=== PATIENT | male | born 1950 | race Caucasian/White ===

== ENCOUNTER 2017-08-26 21:03 | Inpatient (IN) | payer MEDICARE ==
[2017-08-26 22:58] LABS: BASO % 0.6 % (0.0-2.0); EOS # 0.1 K/uL (0.0-0.7); EOS % 1.9 % (0.0-4.0); HEMOGLOBIN 14.3 g/dL (12.0-18.0); LYMPH # 0.7 K/uL (1.0-4.3); LYMPH % 12.5 % (20.0-40.0); MEAN CELL VOLUME 100.6 fL (80.0-94.0); MEAN CORPUSCULAR HEMOGLOBIN 35.3 pg (27.0-31.0); MEAN PLATELET VOLUME 7.4 fL (7.2-11.7); MONO # 0.2 K/uL (0.0-0.8); MONO % 4.2 % (0.0-10.0); NEUT # 4.3 K/uL (1.8-7.0); NEUT % 80.8 % (50.0-75.0); NRBC % 0.1 % (0.0-2.0); RBC 4.06 Mil/uL (4.40-5.90); RED CELL DISTRIBUTION WIDTH 13.7 % (11.5-14.5); WHITE BLOOD COUNT 5.3 K/uL (4.8-10.8)
[2017-08-26 23:08] LABS: ALB/GLOB RATIO 1.3 (1.0-2.1); ALT/SGPT 25 U/L (21-72); AST/SGOT 28 U/L (17-59); BLOOD UREA NITROGEN 10 mg/dL (9-20); CALCIUM 8.2 mg/dl (8.6-10.4); GFR AFRICAN-AMERICAN > 60; GFR NON-AFRICAN AMERICAN > 60
[2017-08-26 23:52] LABS: PROTHROMBIN TIME 11.1 SECONDS (9.7-12.2)
--- NOTE | 2017-08-27 00:07 | CT ---
EXAM: CT Head Without Intravenous Contrast EXAM DATE/TIME: 08/26/2017 10:41 PM CLINICAL HISTORY: 67 years old, male; Pain; Headache; Patient HX: 02-27-16 images sent; Additional info: Intoxicated, ? head injury TECHNIQUE: Axial computed tomography images of the head/brain without intravenous contrast. All CT scans at this facility use one or more dose reduction techniques, viz.: automated exposure control; ma/kV adjustment per patient size (including targeted exams where dose is matched to indication; i.e. head); or iterative reconstruction technique. COMPARISON: CT - HEAD W/O CONTRAST 2016-02-27 23:46 FINDINGS: There are old fractures of the anterior and lateral bassett of the maxillary sinuses. There are old fractures of the lateral orbital bassett. There is an old fracture of the left zygomatic arch. There is a nondisplaced fracture of the left parietal bone new since prior study with overlying soft tissue swelling (axial images 54 through 64). There is a biconvex extra-axial hyperdense collection underlying the left parietal fracture consistent with acute epidural hematoma measuring 17 mm in width. There is blood within numerous adjacent sulci of the left frontal, left parietal and left temporal lobe as well as in the sylvian fissure. There is a small amount of subdural blood along the anterior falx measuring 3 mm in width. There is a large hemorrhagic contusion in the left temporal lobe measuring approximately 4 x 1.7 cm in axial dimensions. A surrounding rim of low attenuation is present consistent with edema. There is nonvisualization of the temporal horn of the left lateral ventricle. The cisterns are patent. IMPRESSION: Acute nondisplaced left parietal bone fracture with underlying epidural hematoma. Subarachnoid hemorrhage within sulci of the left frontal, parietal, temporal lobes. Large left temporal hemorrhagic contusion with surrounding edema. Small left parafalcine hematoma. Multiple old facial fractures as described above.
--- NOTE | 2017-08-27 00:19 | C.PDOC ---
History Of Present Illness 67 year old male brought in by ambulance, after being found lying in the street intoxicated. Upon arrival, patient is walking around in the ER. States he fell and hit his head. There are no signs of injury. Patient offers no complaints at this time. PMD: none Time Seen by Provider: 08/26/17 22:25 Chief Complaint (Nursing): Substance Abuse History Per: Patient History/Exam Limitations: intoxication Onset/Duration Of Symptoms: Hrs Current Symptoms Are (Timing): Still Present Modifying Factor(s): Alcohol Additional History Per: EMS Past Medical History Reviewed: Historical Data, Nursing Documentation, Vital Signs Vital Signs: Last Vital Signs Temp 97.9 F 08/26/17 21:39 Pulse 80 08/26/17 23:45 Resp 16 08/26/17 23:45 BP 151/87 H 08/26/17 23:45 Pulse Ox 97 08/27/17 00:25 Family History: States: No Known Family Hx - Social History Hx Alcohol Use: Yes Hx Substance Use: No - Immunization History Hx Tetanus Toxoid Vaccination: No Hx Influenza Vaccination: No Hx Pneumococcal Vaccination: No Review Of Systems Constitutional: Negative for: Weakness Eyes: Negative for: Vision Change Cardiovascular: Negative for: Chest Pain, Light Headedness Respiratory: Negative for: Cough, Shortness of Breath Gastrointestinal: Negative for: Nausea, Vomiting, Abdominal Pain Skin: Negative for: Lesions, Bruising Neurological: Positive for: Other (head injury). Negative for: Weakness, Numbness, Seizures, Dizziness Physical Exam - Physical Exam Appears: Non-toxic, No Acute Distress Skin: Normal Color, Warm, Dry Head: Normacephalic, No Tenderness, No Swelling, No Abrasion, No Laceration, No Other (obvious signs of injury) Eye(s): bilateral: Normal Inspection, PERRL, EOMI Ear(s): Bilateral: Normal Oral Mucosa: Moist Neck: Normal ROM, Supple Chest: Symmetrical Cardiovascular: Rhythm Regular Respiratory: Normal Breath Sounds, No Accessory Muscle Use Gastrointestinal/Abdominal: Normal Exam, Soft, No Tenderness Extremity: Bilateral: Atraumatic, Normal Color And Temperature, Normal ROM Neurological/Psych: Other (speech is slurred) Gait: Unsteady ED Course And Treatment - Laboratory Results Result Diagrams: 08/26/17 22:53 08/26/17 22:53 Lab Interpretation: No Acute Changes (ETOH 237) ECG: Interpreted By Me ECG Rhythm: Sinus Rhythm ECG Interpretation: Normal O2 Sat by Pulse Oximetry: 97 (RA) Pulse Ox Interpretation: Normal - CT Scan/US CT Head Other Rad Studies (CT/US): Read By Radiologist, Radiology Report Reviewed CT/US Interpretation: FINDINGS: . There are old fractures of the anterior and lateral bassett of the maxillary. sinuses. . There are old fractures of the lateral orbital bassett. . There is an old fracture of the left zygomatic arch. . There is a nondisplaced fracture of the left parietal bone new since prior. study with overlying soft tissue swelling (axial images 54 through 64). . There is a biconvex extra-axial hyperdense collection underlying the left. parietal fracture consistent with acute epidural hematoma measuring 17 mm in. width. . There is blood within numerous adjacent sulci of the left frontal, left. parietal and left temporal lobe as well as in the sylvian fissure. . There is a small amount of subdural blood along the anterior falx measuring 3. mm in width. . There is a large hemorrhagic contusion in the left temporal lobe measuring. approximately 4 x 1.7 cm in axial dimensions. A surrounding rim of low. attenuation is present consistent with edema. There is nonvisualization of the. temporal horn of the left lateral ventricle. . The cisterns are patent. . . . IMPRESSION: . Acute nondisplaced left parietal bone fracture with underlying epidural. hematoma. . Subarachnoid hemorrhage within sulci of the left frontal, parietal, temporal. lobes. . Large left temporal hemorrhagic contusion with surrounding edema. . Small left parafalcine hematoma. . Multiple old facial fractures as described above. Reevaluation Time: 00:28 Reassessment Condition: Unchanged - Physician Consult Information Outcome Of Conversation: Case discussed with Dr Foster. Patient to be observed in ICU. Dr Barron notified, Dr Ceja accepting for ICU. Medical Decision Making Medical Decision Making: Impression: ETOH intoxication, possible head injury Time: 22:41 Initial Plan: * CMP * Alcohol serum * Blood type and screen * CBC * PTT * Prothrombin time * EKG * CT Head w/o contrast Disposition - Disposition Disposition: HOSPITALIZED Disposition Time: 00:29 Condition: CRITICAL - POA Present On Arrival: None - Clinical Impression Clinical Impression: Alcohol intoxication, Intracranial hemorrhage following injury - Scribe Statement The provider has reviewed the documentation as recorded by the Scribe (Vero Westbrook) Provider Attestation: All medical record entries made by the Scribe were at my direction and personally dictated by me. I have reviewed the chart and agree that the record accurately reflects my personal performance of the history, physical exam, medical decision making, and the department course for this patient. I have also personally directed, reviewed, and agree with the discharge instructions and disposition.
[2017-08-27] MEDS ORDERED: Folic Acid 1 MG, Thiamine 100 MG, Multivitamin (MVI) 10 ML in Dextrose 5% In Water 1,00... IV SCH (01:15)
[2017-08-27] MEDS ORDERED: Folic Acid 1 MG, Thiamine 100 MG, Multivitamin (MVI) 10 ML in Dextrose 5% In Water 1,00... IV ONE (01:30)
--- NOTE | 2017-08-27 02:16 | CP.PCM.CON ---
History of Present Illness - History of Present Illness History of Present Illness: 67 year old male brought in by ambulance, after being found lying in the street intoxicated. Upon arrival, patient is walking around in the ER. States he fell and hit his head. There are no signs of injury. Patient offers no complaints at this time. patient is following simple commands. He is moving all 4 extremities on commands. But he is not able to give much history. His speech is somewhat slurred. Vital signs otherwise stable. The family history, past medical history, surgical history in unobtainable. On examination: vital signs stable. Chest good air entry. Abdomen soft Nontender No pedal edema Neurologically patient awake and responding and following simple commands. Scalp injury noted. Patient had a CT scan of the head showing evidence ofleft parietal bone fracture ,underlying epidural hematoma, subarachnoid hemorrhage large left temporal hemorrhage and contusion and edema. PatientEtOH LEVEL is elevated Assessment/recommendation: 67-year-old male alcoholic abuse admitted with intox. Patient also has intracranial bleeding. Consulted with neurosurgeon, in the emergency room suggested no surgical interventio, ICU monitoring. Close watch. Fall precaution. delirium tremens,seizure precaution Past Patient History - Infectious Disease Hx of Infectious Diseases: None - Past Social History Smoking Status: Never Smoked - PSYCHIATRIC Hx Substance Use: No Meds Allergies/Adverse Reactions: Allergies Allergy/AdvReac Type Severity Reaction Status Date / Time Unobtainable Allergy Verified 08/26/17 21:46 - Medications Medications: Current Medications Potassium Chloride (Potassium Chloride 20 Meq/100 Ml) 20 meq in 100 mls @ 50 mls/hr IVPB ONCE ONE Stop: 08/27/17 03:08 Last Admin: 08/27/17 01:21 Dose: 50 mls/hr Potassium Chloride (Potassium Chloride 20 Meq/100 Ml) 20 meq in 100 mls @ 50 mls/hr IVPB ONCE ONE Stop: 08/27/17 03:12 Potassium Chloride (Potassium Chloride 20 Meq/100 Ml) 20 meq in 100 mls @ 50 mls/hr IVPB ONCE ONE Stop: 08/27/17 03:13 Folic Acid 1 mg/ Thiamine HCl 100 mg/ Multivitamins/Vitamin C 10 ml/ Dextrose 1 ,011.2 mls @ 75 mls/hr IV .[id number] ONE Stop: 08/27/17 14:58 Pantoprazole Sodium (Protonix Inj) 40 mg IVP DAILY CALE Results - Vital Signs Recent Vital Signs: Last Vital Signs Temp 98.2 F 08/27/17 01:29 Pulse 80 08/27/17 01:29 Resp 20 08/27/17 01:29 BP 164/91 H 08/27/17 01:29 Pulse Ox 100 08/27/17 01:29 - Labs Result Diagrams: 08/26/17 22:53 08/26/17 22:53 Labs: Laboratory Results - last 24 hr 08/26/17 08/26/17 08/26/17 22:53 22:53 22:53 WBC 5.3 RBC 4.06 L Hgb 14.3 Hct 40.8 MCV 100.6 H MCH 35.3 H MCHC 35.0 RDW 13.7 Plt Count 169 MPV 7.4 Neut % (Auto) 80.8 H Lymph % (Auto) 12.5 L [place] % (Auto) 4.2 Eos % (Auto) 1.9 Baso % (Auto) 0.6 Neut # (Auto) 4.3 Lymph # (Auto) 0.7 L [place] # (Auto) 0.2 Eos # (Auto) 0.1 Baso # (Auto) 0.0 PT INR APTT Sodium 135 Potassium 3.0 L Chloride 95 L Carbon Dioxide 28 Anion Gap 15 BUN 10 Creatinine 0.8 Est GFR ( Amer) > 60 Est GFR (Non-Af Amer) > 60 Random Glucose 119 H Calcium 8.2 L Magnesium Total Bilirubin 0.9 AST 28 ALT 25 Alkaline Phosphatase 32 L Total Protein 7.1 Albumin 4.0 Globulin 3.1 Albumin/Globulin Ratio 1.3 Alcohol, Quantitative 237 H Blood Type Antibody Screen 08/26/17 08/27/17 08/27/17 23:41 00:09 01:23 WBC RBC Hgb Hct MCV MCH MCHC RDW Plt Count MPV Neut % (Auto) Lymph % (Auto) [place] % (Auto) Eos % (Auto) Baso % (Auto) Neut # (Auto) Lymph # (Auto) [place] # (Auto) Eos # (Auto) Baso # (Auto) PT 11.1 INR 1.0 APTT 28 Sodium Potassium Chloride Carbon Dioxide Anion Gap BUN Creatinine Est GFR ( Amer) Est GFR (Non-Af Amer) Random Glucose Calcium Magnesium 2.0 Total Bilirubin AST ALT Alkaline Phosphatase Total Protein Albumin Globulin Albumin/Globulin Ratio Alcohol, Quantitative Blood Type A POSITIVE Antibody Screen Negative
[2017-08-27 07:04] LABS: BASO % 0.3 % (0.0-2.0); EOS % 0.2 % (0.0-4.0); HEMOGLOBIN 13.8 g/dL (12.0-18.0); LYMPH # 0.7 K/uL (1.0-4.3); MEAN CELL VOLUME 99.5 fL (80.0-94.0); MEAN CORPUSCULAR HEMOGLOBIN 35.7 pg (27.0-31.0); MEAN CORPUSCULAR HGB CONC 35.8 g/dL (33.0-37.0); MONO # 0.4 K/uL (0.0-0.8); MONO % 4.3 % (0.0-10.0); NEUT # 9.1 K/uL (1.8-7.0); NEUT % 88.2 % (50.0-75.0); PLATELET COUNT 201 K/uL (130-400); RBC 3.86 Mil/uL (4.40-5.90); RED CELL DISTRIBUTION WIDTH 13.5 % (11.5-14.5); WHITE BLOOD COUNT 10.3 K/uL (4.8-10.8)
[2017-08-27] MEDS ORDERED: Phytonadione 10 mg/ml Inj (Adult) IV STA (07:19)
[2017-08-27] MEDS: levETIRAcetam 1,000 MG in Sodium Chloride 0.9% 100 ML IVPB SCH ×2 (07:30→18:42)
[2017-08-27 07:34] LABS: ALB/GLOB RATIO 1.3 (1.0-2.1); ALBUMIN 3.9 g/dL (3.5-5.0); ALT/SGPT 22 U/L (21-72); AST/SGOT 27 U/L (17-59); BLOOD UREA NITROGEN 9 mg/dL (9-20); CALCIUM 8.1 mg/dl (8.6-10.4); GFR AFRICAN-AMERICAN > 60; GFR NON-AFRICAN AMERICAN > 60; MAGNESIUM 1.7 mg/dL (1.6-2.3)
[2017-08-27 09:01] LABS: TOTAL CELLS COUNTED 100
[2017-08-27 09:02] LABS: LYMPHOCYTE 7 % (20-40); MONOCYTE 4 % (0-10); NEUTROPHIL 89 % (50-75); PLATELET ESTIMATE NORMAL (NORMAL)
--- NOTE | 2017-08-27 09:25 | RAD ---
Chest x-ray single frontal view History: Intracranial bleed. Comparison: None available. Findings: No focal infiltrate or effusion. Small nodular density at the right lung base may represent confluence of shadows with ribs and vessels. Tortuous aorta. Heart size within normal limits. Degenerative changes in the spine. Impression: No focal infiltrate or effusion. Small nodular density at the right lung base may represent confluence of shadows with ribs and vessels.
--- NOTE | 2017-08-27 10:08 | CP.PCM.CON ---
History of Present Illness - History of Present Illness History of Present Illness: Dictated moderate L temp ICH Pt is arousable even posttictal botello well will definitely have speech and language dysfunction CT this am unchanged No NRS intervention indicated at this time rec HOB elevation dehydration f/ CT am Past Patient History - Infectious Disease Hx of Infectious Diseases: None - Past Medical History & Family History Past Medical History?: No - Past Social History Smoking Status: Never Smoked - CARDIAC Hx Cardiac Disorders: No - PULMONARY Hx Respiratory Disorders: No - NEUROLOGICAL Hx Neurological Disorder: No - HEENT Hx HEENT Problems: No - RENAL Hx Chronic Kidney Disease: No - ENDOCRINE/METABOLIC Hx Endocrine Disorders: No - HEMATOLOGICAL/ONCOLOGICAL Hx Blood Disorders: No - INTEGUMENTARY Hx Dermatological Problems: No - MUSCULOSKELETAL/RHEUMATOLOGICAL Hx Falls: Yes - GASTROINTESTINAL Hx Gastrointestinal Disorders: No - GENITOURINARY/GYNECOLOGICAL Hx Genitourinary Disorders: No - PSYCHIATRIC Hx Substance Use: No - SURGICAL HISTORY Hx Surgeries: Yes Other/Comment: stitches to eyebrow due to fall from intoxication - ANESTHESIA Hx Anesthesia: No Hx Anesthesia Reactions: No Hx Malignant Hyperthermia: No Meds Allergies/Adverse Reactions: Allergies Allergy/AdvReac Type Severity Reaction Status Date / Time Unobtainable Allergy Verified 08/26/17 21:46 - Medications Medications: Current Medications Folic Acid 1 mg/ Thiamine HCl 100 mg/ Multivitamins/Vitamin C 10 ml/ Dextrose 1 ,011.2 mls @ 75 mls/hr IV .[id number] ONE Stop: 08/27/17 14:58 Last Admin: 08/27/17 02:32 Dose: 75 mls/hr Levetiracetam 1,000 mg/ Sodium (Chloride) 110 mls @ 420 mls/hr IVPB Q12H CALE Mannitol (Mannitol) 500 mls @ 100 mls/hr IV .Q5H CALE Stop: 08/27/17 11:29 Lorazepam (Ativan) 1 mg IVP Q6H PRN PRN Reason: Anxiety Last Admin: 08/27/17 07:23 Dose: 1 mg Pantoprazole Sodium (Protonix Inj) 40 mg IVP DAILY CALE Thiamine HCl (Vitamin B1 Tab) 100 mg PO DAILY CALE Results - Vital Signs Recent Vital Signs: Last Vital Signs Temp 98.4 F 08/27/17 04:00 Pulse 106 H 08/27/17 07:00 Resp 26 H 08/27/17 07:00 BP 143/77 08/27/17 06:59 Pulse Ox 96 08/27/17 07:00 - Labs Result Diagrams: 08/27/17 07:01 08/27/17 07:01 Labs: Laboratory Results - last 24 hr 08/26/17 08/26/17 08/26/17 22:53 22:53 22:53 WBC 5.3 RBC 4.06 L Hgb 14.3 Hct 40.8 MCV 100.6 H MCH 35.3 H MCHC 35.0 RDW 13.7 Plt Count 169 MPV 7.4 Neut % (Auto) 80.8 H Lymph % (Auto) 12.5 L [place] % (Auto) 4.2 Eos % (Auto) 1.9 Baso % (Auto) 0.6 Neut # (Auto) 4.3 Lymph # (Auto) 0.7 L [place] # (Auto) 0.2 Eos # (Auto) 0.1 Baso # (Auto) 0.0 Neutrophils % (Manual) Lymphocytes % (Manual) Monocytes % (Manual) Platelet Estimate PT INR APTT Sodium 135 Potassium 3.0 L Chloride 95 L Carbon Dioxide 28 Anion Gap 15 BUN 10 Creatinine 0.8 Est GFR ( Amer) > 60 Est GFR (Non-Af Amer) > 60 Random Glucose 119 H Calcium 8.2 L Phosphorus Magnesium Total Bilirubin 0.9 AST 28 ALT 25 Alkaline Phosphatase 32 L Total Protein 7.1 Albumin 4.0 Globulin 3.1 Albumin/Globulin Ratio 1.3 Alcohol, Quantitative 237 H Blood Type Antibody Screen 08/26/17 08/27/17 08/27/17 23:41 00:09 01:23 WBC RBC Hgb Hct MCV MCH MCHC RDW Plt Count MPV Neut % (Auto) Lymph % (Auto) [place] % (Auto) Eos % (Auto) Baso % (Auto) Neut # (Auto) Lymph # (Auto) [place] # (Auto) Eos # (Auto) Baso # (Auto) Neutrophils % (Manual) Lymphocytes % (Manual) Monocytes % (Manual) Platelet Estimate PT 11.1 INR 1.0 APTT 28 Sodium Potassium Chloride Carbon Dioxide Anion Gap BUN Creatinine Est GFR ( Amer) Est GFR (Non-Af Amer) Random Glucose Calcium Phosphorus Magnesium 2.0 Total Bilirubin AST ALT Alkaline Phosphatase Total Protein Albumin Globulin Albumin/Globulin Ratio Alcohol, Quantitative Blood Type A POSITIVE Antibody Screen Negative 08/27/17 08/27/17 07:01 07:01 WBC 10.3 D RBC 3.86 L Hgb 13.8 Hct 38.4 MCV 99.5 H MCH 35.7 H MCHC 35.8 RDW 13.5 Plt Count 201 MPV 8.0 Neut % (Auto) 88.2 H Lymph % (Auto) 7.0 L [place] % (Auto) 4.3 Eos % (Auto) 0.2 Baso % (Auto) 0.3 Neut # (Auto) 9.1 H Lymph # (Auto) 0.7 L [place] # (Auto) 0.4 Eos # (Auto) 0.0 Baso # (Auto) 0.0 Neutrophils % (Manual) 89 H Lymphocytes % (Manual) 7 L Monocytes % (Manual) 4 Platelet Estimate Normal PT INR APTT Sodium 130 L Potassium 3.8 Chloride 96 L Carbon Dioxide 18 L Anion Gap 20 BUN 9 Creatinine 0.7 L Est GFR ( Amer) > 60 Est GFR (Non-Af Amer) > 60 Random Glucose 127 H Calcium 8.1 L Phosphorus 2.1 L Magnesium 1.7 Total Bilirubin 1.0 AST 27 ALT 22 Alkaline Phosphatase 36 L Total Protein 6.9 Albumin 3.9 Globulin 3.0 Albumin/Globulin Ratio 1.3 Alcohol, Quantitative Blood Type Antibody Screen
--- NOTE | 2017-08-27 10:28 | CT ---
PROCEDURE: CT HEAD WITHOUT CONTRAST. HISTORY: worsening neuro status COMPARISON: CT 08/26/2017 TECHNIQUE: Axial computed tomography images were obtained through the head/brain without intravenous contrast. Radiation dose: Total exam DLP = 1068 mGy-cm. This CT exam was performed using one or more of the following dose reduction techniques: Automated exposure control, adjustment of the mA and/or kV according to patient size, and/or use of iterative reconstruction technique. FINDINGS: HEMORRHAGE: There is an extra-axial hemorrhage adjacent to the skull fracture which has a biconvex appearance suspicious for an epidural hematoma. This has not changed in size. This measures 10 mm thick by 48 mm with as seen on coronal image 54. There is also a small component of subdural blood and subarachnoid blood. A minimal subdural hemorrhage is seen along the anterior falx. There is a large intraparenchymal hemorrhage in the left temporal lobe with a moderate amount of surrounding edema. There is also a small focal hemorrhage along the inferior surface of the anterior right frontal lobe. All of these findings are stable and unchanged. BRAIN: As above VENTRICLES: Unremarkable. No hydrocephalus. CALVARIUM: Nondisplaced fracture of the skull in the left frontal region PARANASAL SINUSES: Unremarkable as visualized. No significant inflammatory changes. MASTOID AIR CELLS: Unremarkable as visualized. No inflammatory changes. OTHER FINDINGS: None. IMPRESSION: Multi compartment hemorrhage as described above. Findings are stable and unchanged
[2017-08-27] MEDS ORDERED: Phytonadione 10 mg/ml Inj (Adult) IV ONE (10:45)
--- NOTE | 2017-08-27 17:36 | CP.CCUPN ---
<Corbin Linder - Last Filed: 08/27/17 17:35> CCU Subjective - Physician Review Subjective (Free Text): 08/27/17 17:35 Patient seen and examined at bedside Course thus far is as follows: Patient is a 67 year-old [place] male brought in 08/26 at 2200 by ambulance after being found in the street intoxicated. He claimed to have fallen and hit his head after having drank "two beers", and has difficulty speaking and understanding [place] (soboba [place]), but able to use an interpreter and translator. He suffered a generalized tonic-clonic new onset seizure this AM at ~600, and was unarousable immediately after. Neurosurgery (Kristin) evaluated him shortly thereafter and did not recommend neurosurgical intervention at that time, but will re-evaluate in the coming days. He had a head CT performed in the ED on 08/26, which found old fractures of anterior/lateral wall, maxillary sinuses, lateral orbital,and left zygomatic arch. New, acute findings from the CT revealed a non-displaced left parietal bone fracture with epidural hematoma, subarachnoid hemorrhage within sulci of left frontal, parietal, and temporal bones, and left temporal hemorrhagic contusion with edema. No focal neurologic deficits were noted, although speech areas may be affected as the course progresses. Denies any medical or surgical history. Denies any known family medical history. Next of kin: none Code Status: n/a (presumed full) CCU Objective - Vital Signs / Intake & Output Vital Signs (Last 4 hours): Vital Signs Pulse Resp BP Pulse Ox 08/27/17 15:23 86 08/27/17 15:02 112/94 H 08/27/17 14:44 136 H 90 L 08/27/17 14:00 83 19 98 08/27/17 13:59 82 17 158/88 H 98 Intake and Output (Last 8hrs): Intake & Output 08/27/17 08/27/17 08/27/17 06:59 14:59 22:59 Intake Total 550 1250 175 Balance 550 1250 175 Weight 132 lb 15.02 oz Intake: Intake, IV Amount 550 1250 175 right antecubital 250 650 100 right forearm 300 600 75 Oral 0 0 Other: # Voids Urine, Voided 0 0 # Bowel Movements 0 0 - Medications Active Medications: Active Medications Generic Name Dose Route Start Last Admin Trade Name Freq PRN Reason Stop Dose Admin Chlordiazepoxide 10 mg 08/27/17 11:00 Librium PO Q8 PRN Sedation Levetiracetam 1,000 mg/ Sodium 110 mls @ 420 mls/hr 08/27/17 06:45 08/27/17 07:30 Chloride IVPB 420 mls/hr Q12H CALE Administration Lorazepam 1 mg 08/27/17 10:39 Ativan IVP Q4H PRN Anxiety Pantoprazole Sodium 40 mg 08/27/17 10:00 08/27/17 10:52 Protonix Inj IVP 40 mg DAILY CALE Administration Thiamine HCl 100 mg 08/27/17 10:00 08/27/17 10:52 Vitamin B1 Tab PO 100 mg DAILY CALE Administration - Patient Studies Lab Studies: Lab Studies 08/27/17 08/27/17 08/27/17 Range/Units 07:01 07:01 01:23 WBC 10.3 D (4.8-10.8) K/uL RBC 3.86 L (4.40-5.90) Mil/uL Hgb 13.8 (12.0-18.0) g/dL Hct 38.4 (35.0-51.0) % MCV 99.5 H (80.0-94.0) fL MCH 35.7 H (27.0-31.0) pg MCHC 35.8 (33.0-37.0) g/dL RDW 13.5 (11.5-14.5) % Plt Count 201 (130-400) K/uL MPV 8.0 (7.2-11.7) fL Neut % (Auto) 88.2 H (50.0-75.0) % Lymph % (Auto) 7.0 L (20.0-40.0) % [place] % (Auto) 4.3 (0.0-10.0) % Eos % (Auto) 0.2 (0.0-4.0) % Baso % (Auto) 0.3 (0.0-2.0) % Neut # (Auto) 9.1 H (1.8-7.0) K/uL Lymph # (Auto) 0.7 L (1.0-4.3) K/uL [place] # (Auto) 0.4 (0.0-0.8) K/uL Eos # (Auto) 0.0 (0.0-0.7) K/uL Baso # (Auto) 0.0 (0.0-0.2) K/uL Neutrophils % (Manual) 89 H (50-75) % Lymphocytes % (Manual) 7 L (20-40) % Monocytes % (Manual) 4 (0-10) % Platelet Estimate Normal (NORMAL) PT (9.7-12.2) SECONDS INR APTT (21-34) SECONDS Sodium 130 L (132-148) mmol/L Potassium 3.8 (3.6-5.2) mmol/L Chloride 96 L (98-107) mmol/L Carbon Dioxide 18 L (22-30) mmol/L Anion Gap 20 (10-20) BUN 9 (9-20) mg/dL Creatinine 0.7 L (0.8-1.5) mg/dL Est GFR ( Amer) > 60 Est GFR (Non-Af Amer) > 60 Random Glucose 127 H (75-110) mg/dL Calcium 8.1 L (8.6-10.4) mg/dl Phosphorus 2.1 L (2.5-4.5) mg/dL Magnesium 1.7 2.0 (1.6-2.3) mg/dL Total Bilirubin 1.0 (0.2-1.3) mg/dL AST 27 (17-59) U/L ALT 22 (21-72) U/L Alkaline Phosphatase 36 L (38-126) U/L Total Protein 6.9 (6.3-8.3) g/dL Albumin 3.9 (3.5-5.0) g/dL Globulin 3.0 (2.2-3.9) gm/dL Albumin/Globulin Ratio 1.3 (1.0-2.1) Alcohol, Quantitative (0-10) mg/dl Blood Type Antibody Screen 08/27/17 08/26/17 08/26/17 Range/Units 00:09 23:41 22:53 WBC 5.3 (4.8-10.8) K/uL RBC 4.06 L (4.40-5.90) Mil/uL Hgb 14.3 (12.0-18.0) g/dL Hct 40.8 (35.0-51.0) % MCV 100.6 H (80.0-94.0) fL MCH 35.3 H (27.0-31.0) pg MCHC 35.0 (33.0-37.0) g/dL RDW 13.7 (11.5-14.5) % Plt Count 169 (130-400) K/uL MPV 7.4 (7.2-11.7) fL Neut % (Auto) 80.8 H (50.0-75.0) % Lymph % (Auto) 12.5 L (20.0-40.0) % [place] % (Auto) 4.2 (0.0-10.0) % Eos % (Auto) 1.9 (0.0-4.0) % Baso % (Auto) 0.6 (0.0-2.0) % Neut # (Auto) 4.3 (1.8-7.0) K/uL Lymph # (Auto) 0.7 L (1.0-4.3) K/uL [place] # (Auto) 0.2 (0.0-0.8) K/uL Eos # (Auto) 0.1 (0.0-0.7) K/uL Baso # (Auto) 0.0 (0.0-0.2) K/uL Neutrophils % (Manual) (50-75) % Lymphocytes % (Manual) (20-40) % Monocytes % (Manual) (0-10) % Platelet Estimate (NORMAL) PT 11.1 (9.7-12.2) SECONDS INR 1.0 APTT 28 (21-34) SECONDS Sodium (132-148) mmol/L Potassium (3.6-5.2) mmol/L Chloride (98-107) mmol/L Carbon Dioxide (22-30) mmol/L Anion Gap (10-20) BUN (9-20) mg/dL Creatinine (0.8-1.5) mg/dL Est GFR ( Amer) Est GFR (Non-Af Amer) Random Glucose (75-110) mg/dL Calcium (8.6-10.4) mg/dl Phosphorus (2.5-4.5) mg/dL Magnesium (1.6-2.3) mg/dL Total Bilirubin (0.2-1.3) mg/dL AST (17-59) U/L ALT (21-72) U/L Alkaline Phosphatase (38-126) U/L Total Protein (6.3-8.3) g/dL Albumin (3.5-5.0) g/dL Globulin (2.2-3.9) gm/dL Albumin/Globulin Ratio (1.0-2.1) Alcohol, Quantitative (0-10) mg/dl Blood Type A POSITIVE Antibody Screen Negative 08/26/17 08/26/17 Range/Units 22:53 22:53 WBC (4.8-10.8) K/uL RBC (4.40-5.90) Mil/uL Hgb (12.0-18.0) g/dL Hct (35.0-51.0) % MCV (80.0-94.0) fL MCH (27.0-31.0) pg MCHC (33.0-37.0) g/dL RDW (11.5-14.5) % Plt Count (130-400) K/uL MPV (7.2-11.7) fL Neut % (Auto) (50.0-75.0) % Lymph % (Auto) (20.0-40.0) % [place] % (Auto) (0.0-10.0) % Eos % (Auto) (0.0-4.0) % Baso % (Auto) (0.0-2.0) % Neut # (Auto) (1.8-7.0) K/uL Lymph # (Auto) (1.0-4.3) K/uL [place] # (Auto) (0.0-0.8) K/uL Eos # (Auto) (0.0-0.7) K/uL Baso # (Auto) (0.0-0.2) K/uL Neutrophils % (Manual) (50-75) % Lymphocytes % (Manual) (20-40) % Monocytes % (Manual) (0-10) % Platelet Estimate (NORMAL) PT (9.7-12.2) SECONDS INR APTT (21-34) SECONDS Sodium 135 (132-148) mmol/L Potassium 3.0 L (3.6-5.2) mmol/L Chloride 95 L (98-107) mmol/L Carbon Dioxide 28 (22-30) mmol/L Anion Gap 15 (10-20) BUN 10 (9-20) mg/dL Creatinine 0.8 (0.8-1.5) mg/dL Est GFR ( Amer) > 60 Est GFR (Non-Af Amer) > 60 Random Glucose 119 H (75-110) mg/dL Calcium 8.2 L (8.6-10.4) mg/dl Phosphorus (2.5-4.5) mg/dL Magnesium (1.6-2.3) mg/dL Total Bilirubin 0.9 (0.2-1.3) mg/dL AST 28 (17-59) U/L ALT 25 (21-72) U/L Alkaline Phosphatase 32 L (38-126) U/L Total Protein 7.1 (6.3-8.3) g/dL Albumin 4.0 (3.5-5.0) g/dL Globulin 3.1 (2.2-3.9) gm/dL Albumin/Globulin Ratio 1.3 (1.0-2.1) Alcohol, Quantitative 237 H (0-10) mg/dl Blood Type Antibody Screen Laboratory Results - last 24 hr 08/26/17 08/26/17 08/26/17 22:53 22:53 22:53 WBC 5.3 RBC 4.06 L Hgb 14.3 Hct 40.8 MCV 100.6 H MCH 35.3 H MCHC 35.0 RDW 13.7 Plt Count 169 MPV 7.4 Neut % (Auto) 80.8 H Lymph % (Auto) 12.5 L [place] % (Auto) 4.2 Eos % (Auto) 1.9 Baso % (Auto) 0.6 Neut # (Auto) 4.3 Lymph # (Auto) 0.7 L [place] # (Auto) 0.2 Eos # (Auto) 0.1 Baso # (Auto) 0.0 Neutrophils % (Manual) Lymphocytes % (Manual) Monocytes % (Manual) Platelet Estimate PT INR APTT Sodium 135 Potassium 3.0 L Chloride 95 L Carbon Dioxide 28 Anion Gap 15 BUN 10 Creatinine 0.8 Est GFR ( Amer) > 60 Est GFR (Non-Af Amer) > 60 Random Glucose 119 H Calcium 8.2 L Phosphorus Magnesium Total Bilirubin 0.9 AST 28 ALT 25 Alkaline Phosphatase 32 L Total Protein 7.1 Albumin 4.0 Globulin 3.1 Albumin/Globulin Ratio 1.3 Alcohol, Quantitative 237 H Blood Type Antibody Screen 08/26/17 08/27/17 08/27/17 23:41 00:09 01:23 WBC RBC Hgb Hct MCV MCH MCHC RDW Plt Count MPV Neut % (Auto) Lymph % (Auto) [place] % (Auto) Eos % (Auto) Baso % (Auto) Neut # (Auto) Lymph # (Auto) [place] # (Auto) Eos # (Auto) Baso # (Auto) Neutrophils % (Manual) Lymphocytes % (Manual) Monocytes % (Manual) Platelet Estimate PT 11.1 INR 1.0 APTT 28 Sodium Potassium Chloride Carbon Dioxide Anion Gap BUN Creatinine Est GFR ( Amer) Est GFR (Non-Af Amer) Random Glucose Calcium Phosphorus Magnesium 2.0 Total Bilirubin AST ALT Alkaline Phosphatase Total Protein Albumin Globulin Albumin/Globulin Ratio Alcohol, Quantitative Blood Type A POSITIVE Antibody Screen Negative 08/27/17 08/27/17 07:01 07:01 WBC 10.3 D RBC 3.86 L Hgb 13.8 Hct 38.4 MCV 99.5 H MCH 35.7 H MCHC 35.8 RDW 13.5 Plt Count 201 MPV 8.0 Neut % (Auto) 88.2 H Lymph % (Auto) 7.0 L [place] % (Auto) 4.3 Eos % (Auto) 0.2 Baso % (Auto) 0.3 Neut # (Auto) 9.1 H Lymph # (Auto) 0.7 L [place] # (Auto) 0.4 Eos # (Auto) 0.0 Baso # (Auto) 0.0 Neutrophils % (Manual) 89 H Lymphocytes % (Manual) 7 L Monocytes % (Manual) 4 Platelet Estimate Normal PT INR APTT Sodium 130 L Potassium 3.8 Chloride 96 L Carbon Dioxide 18 L Anion Gap 20 BUN 9 Creatinine 0.7 L Est GFR ( Amer) > 60 Est GFR (Non-Af Amer) > 60 Random Glucose 127 H Calcium 8.1 L Phosphorus 2.1 L Magnesium 1.7 Total Bilirubin 1.0 AST 27 ALT 22 Alkaline Phosphatase 36 L Total Protein 6.9 Albumin 3.9 Globulin 3.0 Albumin/Globulin Ratio 1.3 Alcohol, Quantitative Blood Type Antibody Screen EKG/Cardiology Studies: Cardiology / EKG Studies 08/26/17 23:29 EKG [ELECTROCARDIOGRAM] Stat Comment: Mode Of Transportation: Reason For Exam: CT scan + bleed Critical Care Progress Note - Nutrition Nutrition: Nutrition Category Date Time Status NPO Diet [DIET] Diets 08/27/17 Breakfast Active Assessment/Plan - Assessment and Plan (Free Text) Assessment: 67M w/ intracranial hem Neuro: intracranial hemorrhage, acute; new onset seizure; etOH toxicity (level 2 /8, AM = 237); delirium tremens - d/c Keppra 1000mg @ 420ml/hr IVPB q12 - Librium 25mg q6 hold to sedation - Ativan 1mg IVP q4 standing (on top of PRN) - Mannitol 500ml @ 100ml/hr IV q5 - Vitamin B1 tab 100mg PO qd - f/u with neuro (Aj) with EEG results PPx: - Protonix inj 40mg IVP qd - Fall precautions - HOB elevated <Latef,Javier M - Last Filed: 08/27/17 20:47> CCU Objective - Vital Signs / Intake & Output Vital Signs (Last 4 hours): Vital Signs Pulse Resp Pulse Ox 08/27/17 20:00 85 19 100 08/27/17 19:00 86 17 98 08/27/17 18:00 86 19 98 08/27/17 17:00 83 18 100 Intake and Output (Last 8hrs): Intake & Output 08/27/17 08/27/17 08/27/17 06:59 14:59 22:59 Intake Total 550 1250 950 Output Total 800 Balance 550 1250 150 Weight 132 lb 15.02 oz Intake: Intake, IV Amount 550 1250 950 right antecubital 250 650 500 right forearm 300 600 450 Oral 0 0 Output: Urine 800 Urine, Voided 800 Other: # Voids Urine, Voided 0 0 # Bowel Movements 0 0 - Medications Active Medications: Active Medications Generic Name Dose Route Start Last Admin Trade Name Freq PRN Reason Stop Dose Admin Chlordiazepoxide 10 mg 08/27/17 11:00 Librium PO Q8 PRN Sedation Levetiracetam 1,000 mg/ Sodium 110 mls @ 420 mls/hr 08/27/17 06:45 08/27/17 18:42 Chloride IVPB 420 mls/hr Q12H CALE Administration Sodium Chloride 1,000 mls @ 80 mls/hr 08/27/17 19:15 Sodium Chloride 0.9% IV .[id number] CALE Lorazepam 1 mg 08/27/17 10:39 Ativan IVP Q4H PRN Anxiety Pantoprazole Sodium 40 mg 08/27/17 10:00 08/27/17 10:52 Protonix Inj IVP 40 mg DAILY CALE Administration Thiamine HCl 100 mg 08/27/17 10:00 08/27/17 10:52 Vitamin B1 Tab PO 100 mg DAILY CALE Administration - Patient Studies Lab Studies: Lab Studies 08/27/17 08/27/17 08/27/17 Range/Units 07:01 07:01 01:23 WBC 10.3 D (4.8-10.8) K/uL RBC 3.86 L (4.40-5.90) Mil/uL Hgb 13.8 (12.0-18.0) g/dL Hct 38.4 (35.0-51.0) % MCV 99.5 H (80.0-94.0) fL MCH 35.7 H (27.0-31.0) pg MCHC 35.8 (33.0-37.0) g/dL RDW 13.5 (11.5-14.5) % Plt Count 201 (130-400) K/uL MPV 8.0 (7.2-11.7) fL Neut % (Auto) 88.2 H (50.0-75.0) % Lymph % (Auto) 7.0 L (20.0-40.0) % [place] % (Auto) 4.3 (0.0-10.0) % Eos % (Auto) 0.2 (0.0-4.0) % Baso % (Auto) 0.3 (0.0-2.0) % Neut # (Auto) 9.1 H (1.8-7.0) K/uL Lymph # (Auto) 0.7 L (1.0-4.3) K/uL [place] # (Auto) 0.4 (0.0-0.8) K/uL Eos # (Auto) 0.0 (0.0-0.7) K/uL Baso # (Auto) 0.0 (0.0-0.2) K/uL Neutrophils % (Manual) 89 H (50-75) % Lymphocytes % (Manual) 7 L (20-40) % Monocytes % (Manual) 4 (0-10) % Platelet Estimate Normal (NORMAL) PT (9.7-12.2) SECONDS INR APTT (21-34) SECONDS Sodium 130 L (132-148) mmol/L Potassium 3.8 (3.6-5.2) mmol/L Chloride 96 L (98-107) mmol/L Carbon Dioxide 18 L (22-30) mmol/L Anion Gap 20 (10-20) BUN 9 (9-20) mg/dL Creatinine 0.7 L (0.8-1.5) mg/dL Est GFR ( Amer) > 60 Est GFR (Non-Af Amer) > 60 Random Glucose 127 H (75-110) mg/dL Calcium 8.1 L (8.6-10.4) mg/dl Phosphorus 2.1 L (2.5-4.5) mg/dL Magnesium 1.7 2.0 (1.6-2.3) mg/dL Total Bilirubin 1.0 (0.2-1.3) mg/dL AST 27 (17-59) U/L ALT 22 (21-72) U/L Alkaline Phosphatase 36 L (38-126) U/L Total Protein 6.9 (6.3-8.3) g/dL Albumin 3.9 (3.5-5.0) g/dL Globulin 3.0 (2.2-3.9) gm/dL Albumin/Globulin Ratio 1.3 (1.0-2.1) Alcohol, Quantitative (0-10) mg/dl Blood Type Antibody Screen 08/27/17 08/26/17 08/26/17 Range/Units 00:09 23:41 22:53 WBC 5.3 (4.8-10.8) K/uL RBC 4.06 L (4.40-5.90) Mil/uL Hgb 14.3 (12.0-18.0) g/dL Hct 40.8 (35.0-51.0) % MCV 100.6 H (80.0-94.0) fL MCH 35.3 H (27.0-31.0) pg MCHC 35.0 (33.0-37.0) g/dL RDW 13.7 (11.5-14.5) % Plt Count 169 (130-400) K/uL MPV 7.4 (7.2-11.7) fL Neut % (Auto) 80.8 H (50.0-75.0) % Lymph % (Auto) 12.5 L (20.0-40.0) % [place] % (Auto) 4.2 (0.0-10.0) % Eos % (Auto) 1.9 (0.0-4.0) % Baso % (Auto) 0.6 (0.0-2.0) % Neut # (Auto) 4.3 (1.8-7.0) K/uL Lymph # (Auto) 0.7 L (1.0-4.3) K/uL [place] # (Auto) 0.2 (0.0-0.8) K/uL Eos # (Auto) 0.1 (0.0-0.7) K/uL Baso # (Auto) 0.0 (0.0-0.2) K/uL Neutrophils % (Manual) (50-75) % Lymphocytes % (Manual) (20-40) % Monocytes % (Manual) (0-10) % Platelet Estimate (NORMAL) PT 11.1 (9.7-12.2) SECONDS INR 1.0 APTT 28 (21-34) SECONDS Sodium (132-148) mmol/L Potassium (3.6-5.2) mmol/L Chloride (98-107) mmol/L Carbon Dioxide (22-30) mmol/L Anion Gap (10-20) BUN (9-20) mg/dL Creatinine (0.8-1.5) mg/dL Est GFR ( Amer) Est GFR (Non-Af Amer) Random Glucose (75-110) mg/dL Calcium (8.6-10.4) mg/dl Phosphorus (2.5-4.5) mg/dL Magnesium (1.6-2.3) mg/dL Total Bilirubin (0.2-1.3) mg/dL AST (17-59) U/L ALT (21-72) U/L Alkaline Phosphatase (38-126) U/L Total Protein (6.3-8.3) g/dL Albumin (3.5-5.0) g/dL Globulin (2.2-3.9) gm/dL Albumin/Globulin Ratio (1.0-2.1) Alcohol, Quantitative (0-10) mg/dl Blood Type A POSITIVE Antibody Screen Negative 08/26/17 08/26/17 Range/Units 22:53 22:53 WBC (4.8-10.8) K/uL RBC (4.40-5.90) Mil/uL Hgb (12.0-18.0) g/dL Hct (35.0-51.0) % MCV (80.0-94.0) fL MCH (27.0-31.0) pg MCHC (33.0-37.0) g/dL RDW (11.5-14.5) % Plt Count (130-400) K/uL MPV (7.2-11.7) fL Neut % (Auto) (50.0-75.0) % Lymph % (Auto) (20.0-40.0) % [place] % (Auto) (0.0-10.0) % Eos % (Auto) (0.0-4.0) % Baso % (Auto) (0.0-2.0) % Neut # (Auto) (1.8-7.0) K/uL Lymph # (Auto) (1.0-4.3) K/uL [place] # (Auto) (0.0-0.8) K/uL Eos # (Auto) (0.0-0.7) K/uL Baso # (Auto) (0.0-0.2) K/uL Neutrophils % (Manual) (50-75) % Lymphocytes % (Manual) (20-40) % Monocytes % (Manual) (0-10) % Platelet Estimate (NORMAL) PT (9.7-12.2) SECONDS INR APTT (21-34) SECONDS Sodium 135 (132-148) mmol/L Potassium 3.0 L (3.6-5.2) mmol/L Chloride 95 L (98-107) mmol/L Carbon Dioxide 28 (22-30) mmol/L Anion Gap 15 (10-20) BUN 10 (9-20) mg/dL Creatinine 0.8 (0.8-1.5) mg/dL Est GFR ( Amer) > 60 Est GFR (Non-Af Amer) > 60 Random Glucose 119 H (75-110) mg/dL Calcium 8.2 L (8.6-10.4) mg/dl Phosphorus (2.5-4.5) mg/dL Magnesium (1.6-2.3) mg/dL Total Bilirubin 0.9 (0.2-1.3) mg/dL AST 28 (17-59) U/L ALT 25 (21-72) U/L Alkaline Phosphatase 32 L (38-126) U/L Total Protein 7.1 (6.3-8.3) g/dL Albumin 4.0 (3.5-5.0) g/dL Globulin 3.1 (2.2-3.9) gm/dL Albumin/Globulin Ratio 1.3 (1.0-2.1) Alcohol, Quantitative 237 H (0-10) mg/dl Blood Type Antibody Screen Laboratory Results - last 24 hr 08/26/17 08/26/17 08/26/17 22:53 22:53 22:53 WBC 5.3 RBC 4.06 L Hgb 14.3 Hct 40.8 MCV 100.6 H MCH 35.3 H MCHC 35.0 RDW 13.7 Plt Count 169 MPV 7.4 Neut % (Auto) 80.8 H Lymph % (Auto) 12.5 L [place] % (Auto) 4.2 Eos % (Auto) 1.9 Baso % (Auto) 0.6 Neut # (Auto) 4.3 Lymph # (Auto) 0.7 L [place] # (Auto) 0.2 Eos # (Auto) 0.1 Baso # (Auto) 0.0 Neutrophils % (Manual) Lymphocytes % (Manual) Monocytes % (Manual) Platelet Estimate PT INR APTT Sodium 135 Potassium 3.0 L Chloride 95 L Carbon Dioxide 28 Anion Gap 15 BUN 10 Creatinine 0.8 Est GFR ( Amer) > 60 Est GFR (Non-Af Amer) > 60 Random Glucose 119 H Calcium 8.2 L Phosphorus Magnesium Total Bilirubin 0.9 AST 28 ALT 25 Alkaline Phosphatase 32 L Total Protein 7.1 Albumin 4.0 Globulin 3.1 Albumin/Globulin Ratio 1.3 Alcohol, Quantitative 237 H Blood Type Antibody Screen 08/26/17 08/27/17 08/27/17 23:41 00:09 01:23 WBC RBC Hgb Hct MCV MCH MCHC RDW Plt Count MPV Neut % (Auto) Lymph % (Auto) [place] % (Auto) Eos % (Auto) Baso % (Auto) Neut # (Auto) Lymph # (Auto) [place] # (Auto) Eos # (Auto) Baso # (Auto) Neutrophils % (Manual) Lymphocytes % (Manual) Monocytes % (Manual) Platelet Estimate PT 11.1 INR 1.0 APTT 28 Sodium Potassium Chloride Carbon Dioxide Anion Gap BUN Creatinine Est GFR ( Amer) Est GFR (Non-Af Amer) Random Glucose Calcium Phosphorus Magnesium 2.0 Total Bilirubin AST ALT Alkaline Phosphatase Total Protein Albumin Globulin Albumin/Globulin Ratio Alcohol, Quantitative Blood Type A POSITIVE Antibody Screen Negative 08/27/17 08/27/17 07:01 07:01 WBC 10.3 D RBC 3.86 L Hgb 13.8 Hct 38.4 MCV 99.5 H MCH 35.7 H MCHC 35.8 RDW 13.5 Plt Count 201 MPV 8.0 Neut % (Auto) 88.2 H Lymph % (Auto) 7.0 L [place] % (Auto) 4.3 Eos % (Auto) 0.2 Baso % (Auto) 0.3 Neut # (Auto) 9.1 H Lymph # (Auto) 0.7 L [place] # (Auto) 0.4 Eos # (Auto) 0.0 Baso # (Auto) 0.0 Neutrophils % (Manual) 89 H Lymphocytes % (Manual) 7 L Monocytes % (Manual) 4 Platelet Estimate Normal PT INR APTT Sodium 130 L Potassium 3.8 Chloride 96 L Carbon Dioxide 18 L Anion Gap 20 BUN 9 Creatinine 0.7 L Est GFR ( Amer) > 60 Est GFR (Non-Af Amer) > 60 Random Glucose 127 H Calcium 8.1 L Phosphorus 2.1 L Magnesium 1.7 Total Bilirubin 1.0 AST 27 ALT 22 Alkaline Phosphatase 36 L Total Protein 6.9 Albumin 3.9 Globulin 3.0 Albumin/Globulin Ratio 1.3 Alcohol, Quantitative Blood Type Antibody Screen EKG/Cardiology Studies: Cardiology / EKG Studies 08/26/17 23:29 EKG [ELECTROCARDIOGRAM] Stat Comment: Mode Of Transportation: Reason For Exam: CT scan + bleed Critical Care Progress Note - Nutrition Nutrition: Nutrition Category Date Time Status NPO Diet [DIET] Diets 08/27/17 Breakfast Active Attending/Attestation - Attestation I have personally seen and examined this patient.: Yes I have fully participated in the care of the patient.: Yes I have reviewed all pertinent clinical information: Yes Notes (Text): 08/27/17 20:47 Today: August The Patient was seen and examined at the bedside, Medical records reviewed, and management issues were discussed and formulated with the house staff. I have reviewed all the relevant clinical, laboratory, hemodynamic, radiographic data and medications Events reviewed Pain issues, skin care, head of the bed elevation, glycemic control were addressed. Agree with above resident's assessment and treatment plans of care as transcribed in Dr. Linder note.
--- NOTE | 2017-08-27 18:40 | CP.PCM.HP ---
Past Patient History - Infectious Disease Hx of Infectious Diseases: None - Past Medical History & Family History Past Medical History?: No - Past Social History Smoking Status: Never Smoked - CARDIAC Hx Cardiac Disorders: No - PULMONARY Hx Respiratory Disorders: No - NEUROLOGICAL Hx Neurological Disorder: No - HEENT Hx HEENT Problems: No - RENAL Hx Chronic Kidney Disease: No - ENDOCRINE/METABOLIC Hx Endocrine Disorders: No - HEMATOLOGICAL/ONCOLOGICAL Hx Blood Disorders: No - INTEGUMENTARY Hx Dermatological Problems: No - MUSCULOSKELETAL/RHEUMATOLOGICAL Hx Falls: Yes - GASTROINTESTINAL Hx Gastrointestinal Disorders: No - GENITOURINARY/GYNECOLOGICAL Hx Genitourinary Disorders: No - PSYCHIATRIC Hx Substance Use: No - SURGICAL HISTORY Hx Surgeries: Yes Other/Comment: stitches to eyebrow due to fall from intoxication - ANESTHESIA Hx Anesthesia: No Hx Anesthesia Reactions: No Hx Malignant Hyperthermia: No Meds Allergies/Adverse Reactions: Allergies Allergy/AdvReac Type Severity Reaction Status Date / Time Unobtainable Allergy Verified 08/26/17 21:46 Physical Exam - Constitutional Appears: Well - Head Exam Head Exam: ATRAUMATIC, NORMAL INSPECTION, NORMOCEPHALIC - Eye Exam Eye Exam: EOMI, Normal appearance, PERRL Pupil Exam: NORMAL ACCOMODATION, PERRL - ENT Exam ENT Exam: Mucous Membranes Moist, Normal Exam - Neck Exam Neck exam: Positive for: Normal Inspection - Respiratory Exam Respiratory Exam: Decreased Breath Sounds - Cardiovascular Exam Cardiovascular Exam: REGULAR RHYTHM, +S1, +S2 - GI/Abdominal Exam GI & Abdominal Exam: Diminished Bowel Sounds, Soft - Rectal Exam Rectal Exam: Deferred Results - Vital Signs Recent Vital Signs: Last Vital Signs Temp 98.4 F 08/27/17 12:00 Pulse 86 08/27/17 18:00 Resp 19 08/27/17 18:00 BP 112/94 H 08/27/17 15:02 Pulse Ox 98 08/27/17 18:00 - Labs Result Diagrams: 08/27/17 07:01 08/27/17 07:01 Labs: Laboratory Results - last 24 hr 08/26/17 08/26/17 08/26/17 22:53 22:53 22:53 WBC 5.3 RBC 4.06 L Hgb 14.3 Hct 40.8 MCV 100.6 H MCH 35.3 H MCHC 35.0 RDW 13.7 Plt Count 169 MPV 7.4 Neut % (Auto) 80.8 H Lymph % (Auto) 12.5 L Bee % (Auto) 4.2 Eos % (Auto) 1.9 Baso % (Auto) 0.6 Neut # (Auto) 4.3 Lymph # (Auto) 0.7 L Bee # (Auto) 0.2 Eos # (Auto) 0.1 Baso # (Auto) 0.0 Neutrophils % (Manual) Lymphocytes % (Manual) Monocytes % (Manual) Platelet Estimate PT INR APTT Sodium 135 Potassium 3.0 L Chloride 95 L Carbon Dioxide 28 Anion Gap 15 BUN 10 Creatinine 0.8 Est GFR ( Amer) > 60 Est GFR (Non-Af Amer) > 60 Random Glucose 119 H Calcium 8.2 L Phosphorus Magnesium Total Bilirubin 0.9 AST 28 ALT 25 Alkaline Phosphatase 32 L Total Protein 7.1 Albumin 4.0 Globulin 3.1 Albumin/Globulin Ratio 1.3 Alcohol, Quantitative 237 H Blood Type Antibody Screen 08/26/17 08/27/17 08/27/17 23:41 00:09 01:23 WBC RBC Hgb Hct MCV MCH MCHC RDW Plt Count MPV Neut % (Auto) Lymph % (Auto) Bee % (Auto) Eos % (Auto) Baso % (Auto) Neut # (Auto) Lymph # (Auto) Bee # (Auto) Eos # (Auto) Baso # (Auto) Neutrophils % (Manual) Lymphocytes % (Manual) Monocytes % (Manual) Platelet Estimate PT 11.1 INR 1.0 APTT 28 Sodium Potassium Chloride Carbon Dioxide Anion Gap BUN Creatinine Est GFR ( Amer) Est GFR (Non-Af Amer) Random Glucose Calcium Phosphorus Magnesium 2.0 Total Bilirubin AST ALT Alkaline Phosphatase Total Protein Albumin Globulin Albumin/Globulin Ratio Alcohol, Quantitative Blood Type A POSITIVE Antibody Screen Negative 08/27/17 08/27/17 07:01 07:01 WBC 10.3 D RBC 3.86 L Hgb 13.8 Hct 38.4 MCV 99.5 H MCH 35.7 H MCHC 35.8 RDW 13.5 Plt Count 201 MPV 8.0 Neut % (Auto) 88.2 H Lymph % (Auto) 7.0 L Bee % (Auto) 4.3 Eos % (Auto) 0.2 Baso % (Auto) 0.3 Neut # (Auto) 9.1 H Lymph # (Auto) 0.7 L Bee # (Auto) 0.4 Eos # (Auto) 0.0 Baso # (Auto) 0.0 Neutrophils % (Manual) 89 H Lymphocytes % (Manual) 7 L Monocytes % (Manual) 4 Platelet Estimate Normal PT INR APTT Sodium 130 L Potassium 3.8 Chloride 96 L Carbon Dioxide 18 L Anion Gap 20 BUN 9 Creatinine 0.7 L Est GFR ( Amer) > 60 Est GFR (Non-Af Amer) > 60 Random Glucose 127 H Calcium 8.1 L Phosphorus 2.1 L Magnesium 1.7 Total Bilirubin 1.0 AST 27 ALT 22 Alkaline Phosphatase 36 L Total Protein 6.9 Albumin 3.9 Globulin 3.0 Albumin/Globulin Ratio 1.3 Alcohol, Quantitative Blood Type Antibody Screen
[2017-08-27] MEDS ORDERED: Sodium Chloride 0.9% 1,000 ML IV ONE (19:00)
--- NOTE | 2017-08-27 19:10 | CON ---
DATE: ATTENDING PHYSICIAN: Meri Barron MD The patient is room number ICU bed 10. REASON FOR CONSULTATION: Change in mental status with abnormal CT scan. CHIEF COMPLAINT: The patient was brought in by EMS with a history of the patient was found in the street lying posture with change in mental status. On arriving to the emergency room, the patient was wandering and abnormal CT scan. From neurological point of view, I was called in to evaluate him for further management. HISTORY OF PRESENT ILLNESS: Mr. Yuan Murphy is a 67-year-old Kh[place] with a history of significant alcohol abuse presenting with being found on the street in lying down posture with intoxication. The patient was brought in by EMS. In the emergency room, he got up and walked around without any purpose. The patient was sent for the CAT scan and CAT scan showed three compartmental bleed. Neurosurgery consult also called in. From neurological point of view medically to stabilize him. PAST MEDICAL HISTORY: History of admission in 2016 in February with a similar problem. He was found to have multiple fractures of the skull at that point. No further history is available at this time. PERSONAL HISTORY: History of alcohol use; otherwise, no further information is available. REVIEW OF SYSTEMS: No further information is available from neuro, change in mental status and abnormal CT of the head. PHYSICAL EXAMINATION: VITAL SIGNS: Blood pressure 131/72 with mean artery pressure of 91, respiratory rate 16-18, temperature 98.4 with a pulse rate 107. GENERAL: Earlier being told to me the patient was talking. He wants to pay his bills. He is having 600 dollars in hand. The time I arrived, he was not talking, lying down with facial twitching and left lateral gaze preponderance. NECK: Supple. No carotid bruits. HEART: Sounds tachycardia. EXTREMITIES: No edema in legs. NEUROLOGIC EXAMINATION: The patient is mute, left lateral gaze preponderance. Pupils reactive to light. Left eye matured cataract with anisocoria. Corneal reflex present. No respond to visual threat. No facial sensory deficit. No facial asymmetry manifesting as flattening of the right nasolabial fold. There is a significant tone difference on checking left to the right side. Right side tone is decreased compared with the left side. Deep tendon reflexes: Biceps, brachialis, triceps are trace. Both knees are 1+. Both ankles are absent. Plantars are equivocal response on both sides. Sensory examination: Decreased response to pain on his right side on subungual pressure to compare with left side. Coordination: Gait is deferred at this time. RADIOLOGICAL/LABORATORY DATA: CT of the head reviewed by me showed biconvex, about 2-cm left parietal bleed consistent with epidural hematoma with mass effect to the right side. The patient also showed minimal subdural hematoma and gross left temporal lobe intraparenchymal hemorrhage with a surrounding edema noted. Small left subfalcine hematoma also noted as well. Old left orbital and zygomatic arch fracture also noted from the CAT scan finding. Blood workup: WBC 10.3, hemoglobin 13.8, hematocrit 38.4, platelets 201. PT 11.1, INR 1.0. Sodium 135, potassium 3.0, chloride of 95, bicarbonate of 28, BUN 10, creatinine 0.8, GFR more than 60, random glucose 119, calcium 8.2, alkaline phosphatase 32. Alcohol level 237. CONCLUSION: Mr. Yuan Murphy as per neurological examination, he is presenting with left gross cerebral dysfunction manifesting with lateral gaze preponderance with left facial twitching and right hemiparesis, all consistent with radiological findings as stated above. 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 The patient also showed mass effect suggestive of increased intracerebral pressure. The patient was given mannitol to decrease the ICP and Keppra dose initiated with a loading dose. Ativan is given for current seizure episode. The patient to be kept head in elevation and neurosurgery consult is called in for further input, possible decompression. The patient's condition has been extensively discussed with the registered nurse at the bedside. The patient also scheduled to have a CT of the head for followup to see the progression of the intracerebral bleed and the patient also scheduled to have electroencephalogram to rule out electrographic seizure episodes. Hever Rocha MD
[2017-08-27] MEDS: Sodium Chloride 0.9% 1,000 ML IV SCH (21:00)
[2017-08-28] MEDS: levETIRAcetam 1,000 MG in Sodium Chloride 0.9% 100 ML IVPB SCH (06:21)
[2017-08-28 06:35] LABS: BASO % 0.4 % (0.0-2.0); EOS % 0.3 % (0.0-4.0); HEMOGLOBIN 13.1 g/dL (12.0-18.0); LYMPH # 0.7 K/uL (1.0-4.3); LYMPH % 7.6 % (20.0-40.0); MEAN CELL VOLUME 100.5 fL (80.0-94.0); MEAN CORPUSCULAR HEMOGLOBIN 35.3 pg (27.0-31.0); MEAN CORPUSCULAR HGB CONC 35.2 g/dL (33.0-37.0); MONO # 0.6 K/uL (0.0-0.8); MONO % 6.8 % (0.0-10.0); NEUT % 84.9 % (50.0-75.0); PLATELET COUNT 151 K/uL (130-400); RBC 3.71 Mil/uL (4.40-5.90); RED CELL DISTRIBUTION WIDTH 13.6 % (11.5-14.5); WHITE BLOOD COUNT 9.4 K/uL (4.8-10.8)
[2017-08-28 07:07] LABS: ALB/GLOB RATIO 1.2 (1.0-2.1); ALBUMIN 3.7 g/dL (3.5-5.0); ALT/SGPT 22 U/L (21-72); AMYLASE 60 U/L (30-110); AST/SGOT 32 U/L (17-59); BLOOD UREA NITROGEN 8 mg/dL (9-20); CALCIUM 8.2 mg/dl (8.6-10.4); GFR AFRICAN-AMERICAN > 60; GFR NON-AFRICAN AMERICAN > 60; LIPASE 71 U/L (23-300); MAGNESIUM 2.3 mg/dL (1.6-2.3)
[2017-08-28] MEDS: Sodium Chloride 0.9% 1,000 ML IV SCH (08:10)
[2017-08-28] MEDS ORDERED: Potassium Phosphate 15 MMOLE in Sodium Chloride 0.9% 250 ML IV ONE (08:12)
[2017-08-28 08:44] LABS: EOSINOPHIL 1 % (0-4); LYMPHOCYTE 6 % (20-40); MONOCYTE 6 % (0-10); NEUTROPHIL 87 % (50-75); PLATELET ESTIMATE NORMAL (NORMAL); TOTAL CELLS COUNTED 100
--- NOTE | 2017-08-28 11:35 | PN ---
DATE OF EVALUATION: 08/28/2017 TIME OF EVALUATION: 6:45 a.m. NEUROLOGICAL PROBLEM: Posttraumatic three compartmental bleed including epidural hematoma on his left cerebral cortex. PHYSICAL EXAMINATION: VITAL SIGNS: Blood pressure 156/86, mean arterial pressure of 109, respiratory rate 16, temperature afebrile with a pulse rate of 73 and regular. NEUROLOGIC: The patient's mental status has been improved. No lateralizing gaze. Speech is intact. Speech is fluent, not comprehended. Keep repeating the sentences. Naming impaired. He cannot repeat the sentences. Cranial nerve examination: Moves eyes on either side voluntarily. Pupils are reactive to light on his right side. No facial sensory deficit. Mild facial asymmetry manifesting as flattening of the right nasolabial fold. Hearing seems to be intact. Motor examination: Outstretched hand with eyes closed, no drift noted. Power is slightly weaker on his right side compared with the left side. Plantars are equivocal response on his left side, right side was upgoing. Sensory examination respond to pain symmetrically on both sides. The patient being on mannitol which was given yesterday, responded well with increasing intracranial pressure. The patient also started on Keppra, responded well as well. The seizures had been stopped. His electroencephalogram had been reviewed by me. No paroxysmal activities or focal slowing noted. The patient does show the fast beta activities consistent with his sedation. CT of the head reviewed, the second CAT scan which was done yesterday. The patient had multicompartmental bleed with mass effect on his left to right. Blood workup, hemoglobin 13.8, hematocrit 38.4, platelets 201. Sodium 130, potassium 3.8, chloride 96, bicarbonate 18, BUN 9, creatinine 0.7, GFR more than 60. The patient does not have a DT sign. Continue thiamine at present. Continue hydration. Continue to keep the head elevation. The patient is neurologically stable at present. Neurosurgery consultation was done. Followup CT of the head to be done today to assess the progression or stability of his intracerebral bleed. The patient should have electroencephalogram probably on Thursday. Hever Rocha MD
--- NOTE | 2017-08-28 12:48 | CON ---
DATE: HISTORY OF PRESENT ILLNESS: This is an individual who was found inebriated and intoxicated on the street, was brought to the [facility] ER. He was found to have an intracranial hemorrhage. Those information was requested. Upon arrival, the patient was alert. Apparently, he was talking in a jumbled and incomprehensible manner in both Bruneian and Brazilian. He was moving all extremities. I reviewed the scan at that time and felt that it was nonoperative. He was admitted to the ICU. This morning, he had a grand mal witnessed seizure and he became postictal. Followup CT was performed. PAST MEDICAL HISTORY: reviewed in the chart. PHYSICAL EXAMINATION: GENERAL: At this time, he is awake, sitting up in bed, he is mumbling, but it is not comprehensible to me. I believe, it is in Brazilian. He is not following any commands in [place]ian. However, he has purposeful withdrawal of 4 extremities. He clearly has what seems to be quite normal strength in the 4 extremities. Face is symmetric. Pupils are small, equal, and reactive. The CT done last night, again repeated this morning shows a moderate-sized left temporal intraparenchymal hematoma. There was actually a radiolucency around it even last night indicating that it has been here for sometime. There was also a very hard but small subdural hematoma on that side. There was no midline shift. There was very little mass effect, and certainly the ____ is wide open. IMPRESSION AND PLAN: This is a nonoperative intracranial hemorrhage. The patient is relatively stable. Very unlikely he is going to get through this eval from significant speech and language dysfunction assuming he is right-handed. My only recommendation, perhaps, would be to scan one more time tomorrow. I will continue head of bed elevation, seizure control, and mild dehydration. Johnathon Foster MD
--- NOTE | 2017-08-28 14:00 | CT ---
PROCEDURE: CT brain 08/28/2017 HISTORY: Follow-up intracranial hemorrhage. COMPARISON: Comparison made with CT scan brain 2017. TECHNIQUE: Axial computed tomography images were obtained through the head/brain without intravenous contrast. Radiation dose: Total exam DLP = 896.37 mGy-cm. This CT exam was performed using one or more of the following dose reduction techniques: Automated exposure control, adjustment of the mA and/or kV according to patient size, and/or use of iterative reconstruction technique. FINDINGS: HEMORRHAGE: Current study re- demonstrates a small biconvex extra-axial hemorrhage in the left superior frontal and parietal region at the convexity. This could represent a small epidural hematoma subjacent to are left parietal calvarial fracture that appears to extend superiorly through the sagittal suture and into the right parasagittal posterior superior parietal calvarium. Re- demonstrated are parenchymal hemorrhagic contusions in the left temporal lobe. The hemorrhage and its adjacent rim of low-attenuation edema and or necrotic brain tissue exert mild surrounding mass effect with overlying sulcal effacement and compression/ medial displacement of the left temporal horn. There is a small hemorrhagic contusion right inferior frontal pole. . Suspect small subdural hematoma within the left anterior margin of the interhemispheric fissure. Scattered areas of subarachnoid hemorrhage left cerebral hemisphere also noted. Questionable small bilateral inferior frontal subdural hygromas Mild generalized volume loss. BRAIN: As above. . VENTRICLES: No obstructive hydrocephalus. CALVARIUM: Fracture of the left parietal calvarium extending through the sagittal suture and into the right parasagittal posterior superior parietal calvarium. PARANASAL SINUSES: Unremarkable as visualized. No significant inflammatory changes. MASTOID AIR CELLS: Unremarkable as visualized. No inflammatory changes. OTHER FINDINGS: None. IMPRESSION: Small on biconvex extra-axial hemorrhage left posterior frontoparietal region likely representing an epidural hematoma. Parenchymal hemorrhagic contusional changes with surrounding rim of edema and secondary mild mass effect as described. . Small hemorrhagic contusion right inferior frontal pole. . Probable small left parasagittal subdural hematoma within the anterior aspect of the interhemispheric fissure. Questionable small bilateral inferior frontal subdural hygromas Scattered areas subarachnoid hemorrhage left cerebral hemisphere.
--- NOTE | 2017-08-28 15:24 | CP.PCM.PN ---
Subjective - Date & Time of Evaluation Date of Evaluation: 08/28/17 Time of Evaluation: 15:24 - Subjective Subjective: no change todays CT suggest mobilization/rehab Objective - Vital Signs/Intake and Output Vital Signs (last 24 hours): Temp Pulse Resp BP Pulse Ox 97.2 F L 79 22 148/90 99 08/28/17 08:00 08/28/17 10:00 08/28/17 10:00 08/28/17 10:00 08/28/17 09:00 Intake and Output: 08/28/17 08/28/17 06:59 18:59 Intake Total 1050 500 Output Total 800 Balance 250 500 - Medications Medications: Current Medications Chlordiazepoxide (Librium) 10 mg PO Q8 [facility] Sodium Chloride (Sodium Chloride 0.9%) 1,000 mls @ 80 mls/hr IV .[id number] [facility] Last Admin: 08/27/17 21:00 Dose: 80 mls/hr Levetiracetam (Keppra) 500 mg PO BID [facility] Lorazepam (Ativan) 1 mg IVP Q4H PRN PRN Reason: Anxiety Pantoprazole Sodium (Protonix Inj) 40 mg IVP DAILY [facility] Last Admin: 08/27/17 10:52 Dose: 40 mg Thiamine HCl (Vitamin B1 Tab) 100 mg PO DAILY [facility] Last Admin: 08/27/17 10:52 Dose: 100 mg - Labs Labs: 08/28/17 06:29 08/28/17 06:29 PT 11.1 SECONDS (9.7-12.2) 08/26/17 23:41 INR 1.0 08/26/17 23:41 APTT 28 SECONDS (21-34) 08/26/17 23:41
--- NOTE | 2017-08-28 17:57 | CP.PCM.PN ---
Subjective - Date & Time of Evaluation Date of Evaluation: 08/28/17 Time of Evaluation: 14:20 - Subjective Subjective: clinically same Objective - Vital Signs/Intake and Output Vital Signs (last 24 hours): Temp Pulse Resp BP Pulse Ox 97.2 F L 79 22 148/90 99 08/28/17 08:00 08/28/17 10:00 08/28/17 10:00 08/28/17 10:00 08/28/17 09:00 Intake and Output: 08/28/17 08/28/17 06:59 18:59 Intake Total 1050 500 Output Total 800 Balance 250 500 - Medications Medications: Current Medications Chlordiazepoxide (Librium) 10 mg PO Q8 [facility] Last Admin: 08/28/17 14:15 Dose: 10 mg Sodium Chloride (Sodium Chloride 0.9%) 1,000 mls @ 80 mls/hr IV .[id number] [facility] Last Admin: 08/28/17 08:10 Dose: 80 mls/hr Levetiracetam (Keppra) 500 mg PO BID [facility] Last Admin: 08/28/17 12:15 Dose: 500 mg Lorazepam (Ativan) 1 mg IVP Q4H PRN PRN Reason: Anxiety Pantoprazole Sodium (Protonix Inj) 40 mg IVP DAILY [facility] Last Admin: 08/28/17 10:15 Dose: 40 mg Thiamine HCl (Vitamin B1 Tab) 100 mg PO DAILY [facility] Last Admin: 08/28/17 10:15 Dose: 100 mg - Labs Labs: 08/28/17 06:29 08/28/17 06:29 PT 11.1 SECONDS (9.7-12.2) 08/26/17 23:41 INR 1.0 08/26/17 23:41 APTT 28 SECONDS (21-34) 08/26/17 23:41 - Constitutional Appears: Well - Head Exam Head Exam: ATRAUMATIC, NORMAL INSPECTION, NORMOCEPHALIC - Eye Exam Eye Exam: EOMI, Normal appearance, PERRL Pupil Exam: NORMAL ACCOMODATION, PERRL - ENT Exam ENT Exam: Mucous Membranes Moist, Normal Exam - Neck Exam Neck Exam: Full ROM, Normal Inspection. absent: Lymphadenopathy - Respiratory Exam Respiratory Exam: Decreased Breath Sounds - Cardiovascular Exam Cardiovascular Exam: REGULAR RHYTHM, +S1, +S2 - GI/Abdominal Exam GI & Abdominal Exam: Soft, Diminished Bowel Sounds - Rectal Exam Rectal Exam: Deferred Assessment and Plan - Assessment and Plan (Free Text) Plan: Dr. Mendez Follow-up with Dr. Diego Continue Kepreeti Potassium supplementation Thiamine Vitamin K IV fluid Follow-up with the fireworks display specialist Continue same
[2017-08-28] MEDS ORDERED: Labetalol 25mg/5ml Syringe IVP PRN (18:31)
[2017-08-29] MEDS ORDERED: Influenza Vaccine 60 mcg/0.5 mL SYR (4YR UP) IM ONE (10:00)
--- NOTE | 2017-08-29 12:25 | CARD ---
APPROVED REPORT EKG Measurement Heart [id number] <Conclusion> Normal sinus rhythm Normal ECG
--- NOTE | 2017-08-29 16:42 | CP.PCM.PN ---
Subjective - Date & Time of Evaluation Date of Evaluation: 08/29/17 Time of Evaluation: 13:20 - Subjective Subjective: clinically same Objective - Vital Signs/Intake and Output Vital Signs (last 24 hours): Temp Pulse Resp BP Pulse Ox 97.7 F 77 16 139/84 100 08/29/17 12:00 08/29/17 14:09 08/29/17 14:09 08/29/17 14:09 08/29/17 04:00 Intake and Output: 08/29/17 08/29/17 06:59 18:59 Intake Total 200 Output Total 800 Balance -600 - Medications Medications: Current Medications Amlodipine Besylate (Norvasc) 5 mg PO DAILY [facility] Chlordiazepoxide (Librium) 10 mg PO Q8 [facility] Last Admin: 08/29/17 14:01 Dose: 10 mg Labetalol HCl (Trandate) 10 mg IVP Q4H PRN PRN Reason: Systolic Blood Pressure Last Admin: 08/28/17 21:34 Dose: 10 mg Levetiracetam (Keppra) 500 mg PO BID [facility] Last Admin: 08/29/17 10:26 Dose: 500 mg Lorazepam (Ativan) 1 mg IVP Q4H PRN PRN Reason: Anxiety Pantoprazole Sodium (Protonix Inj) 40 mg IVP DAILY [facility] Last Admin: 08/29/17 10:26 Dose: 40 mg Thiamine HCl (Vitamin B1 Tab) 100 mg PO DAILY [facility] Last Admin: 08/29/17 10:26 Dose: 100 mg - Labs Labs: 08/28/17 06:29 08/28/17 06:29 PT 11.1 SECONDS (9.7-12.2) 08/26/17 23:41 INR 1.0 08/26/17 23:41 APTT 28 SECONDS (21-34) 08/26/17 23:41 - Constitutional Appears: Well - Head Exam Head Exam: ATRAUMATIC, NORMAL INSPECTION, NORMOCEPHALIC - Eye Exam Eye Exam: EOMI, Normal appearance, PERRL Pupil Exam: NORMAL ACCOMODATION, PERRL - ENT Exam ENT Exam: Mucous Membranes Moist, Normal Exam - Neck Exam Neck Exam: Full ROM, Normal Inspection. absent: Lymphadenopathy - Respiratory Exam Respiratory Exam: Decreased Breath Sounds - Cardiovascular Exam Cardiovascular Exam: REGULAR RHYTHM, +S1, +S2 - GI/Abdominal Exam GI & Abdominal Exam: Soft, Diminished Bowel Sounds - Rectal Exam Rectal Exam: Deferred
--- NOTE | 2017-08-30 14:37 | CP.PCM.PN ---
Subjective - Date & Time of Evaluation Date of Evaluation: 08/30/17 Time of Evaluation: 11:20 - Subjective Subjective: clinically same Objective - Vital Signs/Intake and Output Vital Signs (last 24 hours): Temp Pulse Resp BP Pulse Ox 97.7 F 79 20 136/80 98 08/30/17 06:10 08/30/17 07:30 08/30/17 06:10 08/30/17 06:10 08/30/17 06:10 Intake and Output: 08/30/17 08/30/17 06:59 18:59 Intake Total 100 Output Total 300 Balance -200 - Medications Medications: Current Medications Amlodipine Besylate (Norvasc) 5 mg PO DAILY [facility] Last Admin: 08/30/17 10:17 Dose: 5 mg Chlordiazepoxide (Librium) 10 mg PO Q8 [facility] Last Admin: 08/30/17 13:42 Dose: 10 mg Labetalol HCl (Trandate) 10 mg IVP Q4H PRN PRN Reason: Systolic Blood Pressure Last Admin: 08/28/17 21:34 Dose: 10 mg Levetiracetam (Keppra) 500 mg PO BID [facility] Last Admin: 08/30/17 10:17 Dose: 500 mg Lorazepam (Ativan) 1 mg IVP Q4H PRN PRN Reason: Anxiety Last Admin: 08/29/17 22:55 Dose: 1 mg Pantoprazole Sodium (Protonix Ec Tab) 40 mg PO DAILY [facility] Thiamine HCl (Vitamin B1 Tab) 100 mg PO DAILY [facility] Last Admin: 08/30/17 10:25 Dose: 100 mg - Labs Labs: 08/28/17 06:29 08/28/17 06:29 PT 11.1 SECONDS (9.7-12.2) 08/26/17 23:41 INR 1.0 08/26/17 23:41 APTT 28 SECONDS (21-34) 08/26/17 23:41 - Constitutional Appears: Well - Head Exam Head Exam: ATRAUMATIC, NORMAL INSPECTION, NORMOCEPHALIC - Eye Exam Eye Exam: EOMI, Normal appearance, PERRL Pupil Exam: NORMAL ACCOMODATION, PERRL - ENT Exam ENT Exam: Mucous Membranes Moist, Normal Exam - Neck Exam Neck Exam: Full ROM, Normal Inspection. absent: Lymphadenopathy - Respiratory Exam Respiratory Exam: Decreased Breath Sounds - Cardiovascular Exam Cardiovascular Exam: REGULAR RHYTHM, +S1, +S2 - GI/Abdominal Exam GI & Abdominal Exam: Soft, Diminished Bowel Sounds - Rectal Exam Rectal Exam: Deferred
--- NOTE | 2017-08-30 20:34 | PN ---
DATE: 08/30/2017. NEUROLOGICAL PROBLEM: Seizure related to three compartment bleed from trauma and alcohol intoxication. PHYSICAL EXAMINATION: VITAL SIGNS: Blood pressure 136/80, mean arterial pressure of 98, respiratory rate 18, temperature 97.7. NEUROLOGIC: The patient is awake, alert, oriented to person, place and time. The patient would like to go home; however, he was not able to give the address of his home. Seems to be confused as well. Moves all four extremities. He is ambulatory on his own. The patient motor examinations mild left hemiparesis. WORKUP: CT of the head, no progression of the three compartment bleed including left epidural hematoma. WBC 10.4, hemoglobin 13.1, hematocrit 37.3, platelets 151. Sodium 134, potassium 3.7, chloride 101, bicarbonate 25, BUN 80, creatinine 0.8, GFR more than 60, glucose 117, calcium 8.2. RECOMMENDATIONS: 1. The patient is recommended to have MRI of the brain without contrast to assess the bleed. 2. EEG to be done prior to the discharge. 3. Continue Keppra medication as he has been getting for now. 4. Following MRI of the brain if no further progression of the bleed, the patient can be discharged if medically stable. Hever Rocha MD
[2017-08-31 08:21] VITALS: RESP 20
[2017-08-31] MEDS: Pantoprazole 40 mg EC Tab PO SCH (10:25)
--- NOTE | 2017-08-31 11:17 | PN ---
DATE: 08/31/2017. TIME OF EVALUATION: 6:55 a.m. NEUROLOGICAL PROBLEM: Three compartment bleed secondary to posttraumatic cause relation to his alcohol intoxication. PHYSICAL EXAMINATION: VITAL SIGNS: Blood pressure 123/77, mean arterial pressure 92, respiratory rate 16, temperature afebrile. NEUROLOGIC: The patient is sleeping comfortably, arousable on calling his first name. No sign of delirium tremens. EXTREMITIES: He moves all four extremities against the gravity. RECOMMENDATIONS: 1. The patient is scheduled to have an MRI of the brain today. The patient does not show any sign of delirium tremens. Because of increasing letharginess, I would like to cut down the Librium dose to twice a day and that can be cut down to once a day and tapered off in two days interval. 2. The patient also scheduled to have a followup electroencephalogram, which will be done today. Hever Rocha MD
--- NOTE | 2017-08-31 13:58 | MRI ---
PROCEDURE: MRI brain dated 08/31/2017 HISTORY: Follow up intracranial hemorrhage COMPARISON: Follow-up intracranial hemorrhage. Comparison made with prior CT scan brain 08/28/2017. TECHNIQUE: Multiplanar, multisequence MR images of the brain were obtained without intravenous contrast enhancement. FINDINGS: HEMORRHAGE: Current study re- demonstrates hemorrhagic contusional changes in the left temporal lobe (exhibiting various degrees of evolution) within the left temporal lobe that is surrounded by a rim of prolonged T2 signal probably representing a combination of edema and necrotic brain tissue. . Small focal hemorrhage in the right inferior frontal pole is also again noted . Small extra-axial hemorrhage in the left posterior frontoparietal region at the convexity is again noted. Previously noted small amount of subarachnoid hemorrhage is also seen of this appears to have diminished slightly. Previously noted small amount the hemorrhage extending into the anterior superior left parasagittal interhemispheric fissure is also less well seen compared the prior study. No new hemorrhages. DWI: No evidence of an acute or early subacute infarction identified on diffusion-weighted imaging. BRAIN PARENCHYMA: There appears to be mild diffuse/confluent chronic white matter ischemic changes with a few more discrete chronic appearing lacunar type infarcts scattered about the deep and subcortical white matter. VENTRICLES: No evidence of obstructive hydrocephalus CRANIUM: Previously noted fracture lines traversing the left parietal calvarium extending to the sagittal suture into the right parasagittal posterior superior parietal calvarium less well seen on this exam as compared to high-resolution CT scan with bone window imaging. ORBITS: Orbits and contents grossly unremarkable. PARANASAL SINUSES/MASTOIDS: Clear. VASCULAR SYSTEM: Visualized major vascular flow voids at skull base appear patent. OTHER FINDINGS: None. IMPRESSION: Re- demonstrated are hemorrhagic contusional changes in the left temporal lobe (exhibiting various degrees of evolution) within the left temporal lobe that is surrounded by a rim of prolonged T2 signal probably representing a combination of edema and necrotic brain tissue. . Small hemorrhage in the right inferior frontal pole is also again noted . Small extra-axial hemorrhage in the left posterior frontoparietal region at the convexity is again noted. . Previously noted small amount of subarachnoid hemorrhage is also seen of this appears to have diminished slightly. Previously noted small amount the hemorrhage extending into the anterior superior left parasagittal interhemispheric fissure is also less well seen compared the prior study. No new hemorrhages.
--- NOTE | 2017-08-31 19:33 | CP.PCM.PN ---
Subjective - Date & Time of Evaluation Date of Evaluation: 08/31/17 Time of Evaluation: 10:00 - Subjective Subjective: clinically same Objective - Vital Signs/Intake and Output Vital Signs (last 24 hours): Temp Pulse Resp BP Pulse Ox 98.0 F 85 20 138/92 H 96 08/31/17 15:00 08/31/17 15:00 08/31/17 15:00 08/31/17 15:00 08/31/17 15:00 - Medications Medications: Current Medications Amlodipine Besylate (Norvasc) 5 mg PO DAILY [facility] Last Admin: 08/31/17 10:25 Dose: 5 mg Chlordiazepoxide (Librium) 10 mg PO Q12 [facility] Stop: 09/01/17 07:22 Last Admin: 08/31/17 10:26 Dose: 10 mg Chlordiazepoxide (Librium) 10 mg PO ONCE ONE Stop: 09/01/17 08:01 Labetalol HCl (Trandate) 10 mg IVP Q4H PRN PRN Reason: Systolic Blood Pressure Last Admin: 08/28/17 21:34 Dose: 10 mg Levetiracetam (Keppra) 500 mg PO BID [facility] Last Admin: 08/31/17 17:59 Dose: 500 mg Lorazepam (Ativan) 1 mg IVP Q4H PRN PRN Reason: Anxiety Last Admin: 08/29/17 22:55 Dose: 1 mg Pantoprazole Sodium (Protonix Ec Tab) 40 mg PO DAILY [facility] Last Admin: 08/31/17 10:25 Dose: 40 mg Thiamine HCl (Vitamin B1 Tab) 100 mg PO DAILY [facility] Last Admin: 08/31/17 10:25 Dose: 100 mg - Labs Labs: 08/28/17 06:29 08/28/17 06:29 PT 11.1 SECONDS (9.7-12.2) 08/26/17 23:41 INR 1.0 08/26/17 23:41 APTT 28 SECONDS (21-34) 08/26/17 23:41
[2017-09-01] MEDS: Pantoprazole 40 mg EC Tab PO SCH (10:17)
--- NOTE | 2017-09-01 10:24 | PN ---
DATE: 09/01/2017. NEUROLOGICAL PROBLEM: Status post posttraumatic three compartmental bleed from alcohol intoxication. The patient has been stable neurologically for the last one week. PHYSICAL EXAMINATION: VITAL SIGNS: Blood pressure 124/75, mean arterial pressure 90, respiratory rate 18, temperature afebrile. NEUROLOGIC: The patient is sleepy, arousable verbally on calling his name, moving all four extremities. Denies any complaints. Again, he wants to go home. LABORATORY DATA: MRI of the brain reviewed, which does not show any increasing bleed. All bleeding areas been stable as per the CAT scan. ASSESSMENT AND PLAN: The patient is requested to have electroencephalogram prior to the discharge. The patient is on Keppra, let him continue Keppra dose as recommended. Librium on tapering dose. Social service is definitely needed before the discharge for his alcohol abstinence. The patient is neurologically stable at present. Hever Rocha MD
--- NOTE | 2017-09-01 11:18 | EEG ---
DATE: 08/27/17 This is a 16 channel electroencephalogram of an awake and confused adult. During the study, photic stimulation was performed. Hyperventilation was not performed. The resting electroencephalogram consisted of 20 to 30 low microvolt 30 to 40 fast beta activities noted in bilateral cortical leads. This activity is also superimposed with moderate voltage 2 to 3 Hz delta activities. Some loose electrode artifact noted which contaminated the underlying background rhythm. Photic stimulation did not evoke driving response noted at 2 to 20 Hz. IMPRESSION: This is a globally abnormal electroencephalogram because of persistent low amplitude fast beta activities superimposed with 2 to 3 Hz delta activity consistent with bilateral cerebral dysfunction. This Is probably secondary to metabolic, vascular or degenerative process. Considering his clinical scenario, this is probably postictal phase. The fast wave activities are consistent with his drug affect. During the study, neither electroencephalographic paroxysmal activities nor focal slowing noted. Hever Rocha MD
--- NOTE | 2017-09-01 16:54 | CP.PCM.PN ---
Subjective - Date & Time of Evaluation Date of Evaluation: 09/01/17 Time of Evaluation: 10:00 - Subjective Subjective: clinically same Objective - Vital Signs/Intake and Output Vital Signs (last 24 hours): Temp Pulse Resp BP Pulse Ox 98.1 F 88 20 139/83 98 09/01/17 15:26 09/01/17 16:00 09/01/17 15:26 09/01/17 15:26 09/01/17 15:26 - Medications Medications: Current Medications Amlodipine Besylate (Norvasc) 5 mg PO DAILY [facility] Last Admin: 09/01/17 10:17 Dose: 5 mg Labetalol HCl (Trandate) 10 mg IVP Q4H PRN PRN Reason: Systolic Blood Pressure Last Admin: 08/28/17 21:34 Dose: 10 mg Levetiracetam (Keppra) 500 mg PO BID [facility] Last Admin: 09/01/17 10:17 Dose: 500 mg Lorazepam (Ativan) 1 mg IVP Q4H PRN PRN Reason: Anxiety Last Admin: 08/29/17 22:55 Dose: 1 mg Pantoprazole Sodium (Protonix Ec Tab) 40 mg PO DAILY [facility] Last Admin: 09/01/17 10:17 Dose: 40 mg Thiamine HCl (Vitamin B1 Tab) 100 mg PO DAILY [facility] Last Admin: 09/01/17 10:17 Dose: 100 mg - Labs Labs: 08/28/17 06:29 08/28/17 06:29 PT 11.1 SECONDS (9.7-12.2) 08/26/17 23:41 INR 1.0 08/26/17 23:41 APTT 28 SECONDS (21-34) 08/26/17 23:41 - Constitutional Appears: Well - Head Exam Head Exam: ATRAUMATIC, NORMAL INSPECTION, NORMOCEPHALIC - Eye Exam Eye Exam: EOMI, Normal appearance, PERRL Pupil Exam: NORMAL ACCOMODATION, PERRL - ENT Exam ENT Exam: Mucous Membranes Moist, Normal Exam - Neck Exam Neck Exam: Full ROM, Normal Inspection. absent: Lymphadenopathy - Respiratory Exam Respiratory Exam: Decreased Breath Sounds - Cardiovascular Exam Cardiovascular Exam: REGULAR RHYTHM, +S1, +S2 - GI/Abdominal Exam GI & Abdominal Exam: Soft, Diminished Bowel Sounds - Rectal Exam Rectal Exam: Deferred
[2017-09-02 07:35] LABS: BASO % 0.6 % (0.0-2.0); EOS # 0.2 K/uL (0.0-0.7); EOS % 2.7 % (0.0-4.0); HEMOGLOBIN 13.6 g/dL (12.0-18.0); LYMPH % 17.3 % (20.0-40.0); MEAN CELL VOLUME 101.8 fL (80.0-94.0); MEAN CORPUSCULAR HEMOGLOBIN 35.5 pg (27.0-31.0); MEAN CORPUSCULAR HGB CONC 34.9 g/dL (33.0-37.0); MEAN PLATELET VOLUME 7.7 fL (7.2-11.7); MONO # 0.6 K/uL (0.0-0.8); NEUT # 4.1 K/uL (1.8-7.0); NEUT % 69.4 % (50.0-75.0); NRBC % 0.1 % (0.0-2.0); RBC 3.84 Mil/uL (4.40-5.90); WHITE BLOOD COUNT 5.9 K/uL (4.8-10.8)
[2017-09-02 08:17] LABS: BLOOD UREA NITROGEN 16 mg/dL (9-20); CALCIUM 9.3 mg/dl (8.6-10.4); GFR AFRICAN-AMERICAN > 60; GFR NON-AFRICAN AMERICAN > 60
--- NOTE | 2017-09-02 09:17 | PN ---
DATE: 09/02/2017. NEUROLOGICAL PROBLEM: Post traumatic three compartment bleed secondary to alcohol intoxication. PHYSICAL EXAMINATION: VITAL SIGNS: Blood pressure 149/85, mean artery pressure of 106, respiratory rate 18, temperature 97.8, pulse rate 87. NEUROLOGIC: The patient was under one-to-one observation because of his confusion. The patient is sleepy, arousable calling his name, no sign of delirium tremens. The patient did have electroencephalogram, which was reviewed by me, does not show any paroxysmal activities. RECOMMENDATIONS: 1. Continue the present management with Keppra. Tapering dose of Librium. 2. Social service evaluation for his placement as well as his abstinence from alcohol. Heevr Rocha MD
[2017-09-02] MEDS: Pantoprazole 40 mg EC Tab PO SCH (10:21)
[2017-09-02 15:30] VITALS: BP 127/75; PULSE 86; TEMP 98.8; O2SAT 98
--- NOTE | 2017-09-02 15:32 | CP.PCM.PN ---
Subjective - Date & Time of Evaluation Date of Evaluation: 09/02/17 Time of Evaluation: 11:30 - Subjective Subjective: Patient seen today , awake, alert, denies any complaints, slurred speech no overnight events reported by RN Objective - Vital Signs/Intake and Output Vital Signs (last 24 hours): Temp Pulse Resp BP Pulse Ox 98.8 F 86 20 127/75 98 09/02/17 15:00 09/02/17 15:00 09/02/17 15:00 09/02/17 15:00 09/02/17 15:00 Intake and Output: 09/02/17 09/02/17 06:59 18:59 Intake Total 400 Balance 400 - Medications Medications: Current Medications Amlodipine Besylate (Norvasc) 5 mg PO DAILY [facility] Last Admin: 09/02/17 10:21 Dose: 5 mg Labetalol HCl (Trandate) 10 mg IVP Q4H PRN PRN Reason: Systolic Blood Pressure Last Admin: 08/28/17 21:34 Dose: 10 mg Levetiracetam (Keppra) 500 mg PO BID [facility] Last Admin: 09/02/17 10:21 Dose: 500 mg Lorazepam (Ativan) 1 mg PO Q4 PRN PRN Reason: Anxiety Last Admin: 09/01/17 18:20 Dose: 1 mg Lorazepam (Ativan) 1 mg IM Q6H PRN PRN Reason: Anxiety Pantoprazole Sodium (Protonix Ec Tab) 40 mg PO DAILY [facility] Last Admin: 09/02/17 10:21 Dose: 40 mg Thiamine HCl (Vitamin B1 Tab) 100 mg PO DAILY [facility] Last Admin: 09/02/17 10:21 Dose: 100 mg - Labs Labs: 09/02/17 07:13 09/02/17 07:13 PT 11.1 SECONDS (9.7-12.2) 08/26/17 23:41 INR 1.0 08/26/17 23:41 APTT 28 SECONDS (21-34) 08/26/17 23:41 Assessment and Plan - Assessment and Plan (Free Text) Assessment: A/P 67 yr old mal e admitted with Alcohol intoxication, Intracranial hemorrhage following injury MRI- Re- demonstrated are hemorrhagic contusional changes in the left temporal lobe (exhibiting various degrees of evolution) within the left temporal lobe that is surrounded by a rim of prolonged T2 signal probably representing a combination of edema and necrotic brain tissue. . Small hemorrhage in the right inferior frontal pole is also again noted . Small extra-axial hemorrhage in the left posterior frontoparietal region at the convexity is again noted. . Previously noted small amount of subarachnoid hemorrhage is also seen of this appears to have diminished slightly. Previously noted small amount the hemorrhage extending into the anterior superior left parasagittal interhemispheric fissure is also less well seen compared the prior study. Dr. Roach on consult, - non operative and recommends seizure precautions Patient accepted at [facility] for rehab D/W Dr. Alvarez , stable for discharge to [facility] today and Dr. Tova tavarez will follow the patient at [facility] and further management as per Dr. Tova tavarez at [facility]
--- NOTE | 2017-09-03 09:47 | EEG ---
DATE: 09/01/17 This is a 16-channel electroencephalogram of awake and drowsy adult. During the study, photic stimulation was performed. Hyperventilation was not performed. The resting electroencephalogram consists of low amplitude fast theta activities seen in parietal and occipital leads, which is superimposed with 30 to 40 microvolts, 7 to 8 Hz low alpha missed with high theta activities noted at the parietal and occipital leads. The persistent muscle artifact contaminated the background rhythm, particularly the frontal and the temporal leads. The photic stimulation did not evoke driving response noted at 2 to 20 Hz. IMPRESSION: This is a normal electroencephalogram of awake and drowsy adult. During the study, neither electroencephalographic, paroxysmal activities nor focal slowing noted. Hever Rocha MD
== END 2017-09-02 17:01 | DRG 896 ==
LOC: C.ER 21:03 → C.9I 08-27 00:30 → C.6T 08-30 05:56
PROVIDERS: ADMIT Internal Medicine Nephrology; ATTEND Internal Medicine Nephrology
DX: F10.231 Alcohol dependence with withdrawal delirium (principal); S06.369A Traumatic hemorrhage of cerebrum, unspecified, with loss of consciousness of unspecified duration, initial encounter; S02.0XXA Fracture of vault of skull, initial encounter for closed fracture; S06.4X9A Epidural hemorrhage with loss of consciousness of unspecified duration, initial encounter; E86.0 Dehydration; G40.109 Localization-related (focal) (partial) symptomatic epilepsy and epileptic syndromes with simple partial seizures, not intractable, without status epilepticus; F10.239 Alcohol dependence with withdrawal, unspecified; W19.XXXA Unspecified fall, initial encounter; F10.220 Alcohol dependence with intoxication, uncomplicated; Y90.7 Blood alcohol level of 200-239 mg/100 ml

== ENCOUNTER 2017-09-03 20:16 | Emergency (ER) | payer MEDICARE ==
--- NOTE | 2017-09-03 22:18 | C.PDOC ---
History Of Present Illness 67 year old male is sent from [facility] to the ED for medical clearance. Patient was d/c from [facility] yesterday and went to [facility]. As per EMS patient has not been eating and taking his medications so he was sent her for an evaluation. Patient is not able to respond to questions. Chief Complaint (Nursing): Medical Clearance History Per: EMS History/Exam Limitations: clinical condition Onset/Duration Of Symptoms: Days Current Symptoms Are (Timing): Still Present Reports Recently: Seen In ED Recent travel outside of the [place]: No Additional History Per: Patient (yesterday) Past Medical History Reviewed: Historical Data, Nursing Documentation, Vital Signs Vital Signs: Last Vital Signs Temp 97.7 F 09/03/17 20:28 Pulse 110 H 09/03/17 20:28 Resp 16 09/03/17 20:28 BP 150/94 H 09/03/17 20:28 Pulse Ox 97 09/03/17 22:38 - Medical History PMH: HTN, Seizures Denies: Chronic Kidney Disease Surgical History: No Surg Hx Family History: States: Unknown Family Hx - Social History Hx Alcohol Use: Yes Hx Substance Use: No - Immunization History Hx Tetanus Toxoid Vaccination: No Hx Influenza Vaccination: No Hx Pneumococcal Vaccination: No Review Of Systems Review Of Systems: ROS cannot be obtained secondary to pt's inabilty to answer questions. Physical Exam - Physical Exam Appears: Non-toxic, No Acute Distress Skin: Normal Color, Warm, Dry Head: Atraumatic, Normacephalic Eye(s): bilateral: Normal Inspection Nose: No Discharge, No Deformity Oral Mucosa: Moist Neck: Normal ROM, Supple Chest: Symmetrical Cardiovascular: Rhythm Regular, No Murmur Respiratory: Normal Breath Sounds, No Rales, No Rhonchi, No Wheezing Gastrointestinal/Abdominal: Soft, No Tenderness, No Guarding, No Rebound Extremity: Normal ROM, No Tenderness, No Deformity, No Swelling Neurological/Psych: No Oriented x3 (Oriented only to person), Inappropriate Response To Command Disoriented To: Place, Time ED Course And Treatment O2 Sat by Pulse Oximetry: 97 (On RA) Pulse Ox Interpretation: Normal Medical Decision Making Medical Decision Making: Impression: medical clearance Disposition - Disposition Referrals: [facility] [Outside] Disposition: HOME/ ROUTINE Disposition Time: 22:16 Condition: GOOD Instructions: High Blood Pressure (DC) Forms: [employer] ([place]) - Clinical Impression Clinical Impression: Normal exam - Scribe Statement The provider has reviewed the documentation as recorded by the Scribe Braulio Gutierres All medical record entries made by the Scribe were at my direction and personally dictated by me. I have reviewed the chart and agree that the record accurately reflects my personal performance of the history, physical exam, medical decision making, and the department course for this patient. I have also personally directed, reviewed, and agree with the discharge instructions and disposition.
[2017-09-04 01:00] VITALS: BP 140/88; PULSE 100; RESP 20; TEMP 98; O2SAT 98
== END 2017-09-04 01:21 | disposition home or self-care (01) ==
LOC: C.ER 20:16
DX: Z00.00 Encounter for general adult medical examination without abnormal findings (principal)